=== PATIENT | female | born 1960 | race African-American/Black ===

== ENCOUNTER 2017-07-06 15:28 | Outpatient (CLI) | payer MEDICARE, MEDICAID | END 2017-07-06 15:29 | disposition home or self-care (01) | LOC: BICMAMMO 15:28 | PROVIDERS: ATTEND Family Medicine | DX: Z12.31 Encounter for screening mammogram for malignant neoplasm of breast (principal); R92.8 Other abnormal and inconclusive findings on diagnostic imaging of breast | CPT/HCPCS: 77063; 77067 ==

== ENCOUNTER 2018-04-14 21:29 | Inpatient (IN) | payer MEDICARE, MEDICAID ==
--- NOTE | 2018-04-14 23:38 | PDOC.FPRHP ---
- History of Present Illness Chief Complaint: Fever History of Present Illness: 57 yo F with ESRD, CHF, HTN, COPD, and cirrhosis presents as a transfer from [place] ED for fever. Patient has had fever of 101 yesterday with a nonproductive cough for past 2 days. She also has congestion and rhinorrhea. Patient receives MWF dialysis and sees Dr. Maurice, last dialyzed yesterday (Monday ). Denies dysuria or hematuria, diarrhea or constipation. She has chronic nausea and back pain. Fever was 102 at [place] ED. Patient was also hypoxic on RA, with pulse 94. Flu was negative, CXR showed RLL pneumonia and stable pulmonary vascular congestion. WBC was WNL. Lactic acid 0.7. Blood cultures were drawn. BMP was in 2,000, which is less than previously. In [place] ED, she received levaquin, vanc , zosyn, and 1 g tylenol. - Allergies/Adverse Reactions Allergies Allergy/AdvReac Type Severity Reaction Status Date / Time No Known Allergies Allergy Verified 04/14/18 23:40 - Home Medications Medication Instructions Recorded Confirmed Type cloNIDine HCl 0.1 mg PO TID 05/12/13 04/14/18 History hydrALAZINE [Apresoline] 50 mg PO TID #0 tab 05/16/13 04/14/18 Rx Benazepril HCl 20 mg PO BID 02/17/15 04/14/18 History Carvedilol [Coreg] 25 mg PO BID 02/17/15 04/14/18 History Megestrol Acetate 40 mg PO DAILY 05/27/15 04/15/18 History Pantoprazole [Protonix] 40 mg PO BID 06/07/15 04/14/18 History Sevelamer Carbonate [Renvela] 3,200 mg PO TID- 06/07/15 04/14/18 History Albuterol Sulfate [Proair HFA] 2 puff INH Q8HR 11/27/15 04/15/18 History Nitroglycerin [Nitrostat] 0.4 mg SL Q5MIN PRN #0 tab 11/28/15 04/15/18 Rx Pantoprazole [Protonix] 40 mg PO BID 04/14/18 04/14/18 History Sevelamer Carbonate [Renvela] 3,200 mg PO TID- 04/14/18 04/14/18 History Amlodipine [Norvasc] 5 mg PO DAILY 04/15/18 04/15/18 History Benazepril HCl 20 mg PO BID 04/15/18 04/15/18 History Dicyclomine [Bentyl] 10 mg PO TID 04/15/18 04/15/18 History Folic Acid/Vit B Comp W-C 1 tab PO DAILY 04/15/18 04/15/18 History [Nephro-Sydnie Tablet] Ondansetron [Zofran ODT] 4 mg PO Q6HR PRN 04/15/18 04/15/18 History Sildenafil Citrate [Sildenafil] 10 mg PO TID 04/15/18 04/15/18 History Varenicline Tartrate [Chantix] 0.5 mg PO DAILY 04/15/18 04/15/18 History traMADol HCl [Tramadol HCl] 50 mg PO BID 04/15/18 04/15/18 History - History PMHx: ESRD (MWF dialysis), HTN, stroke, cirrhosis, CHF, COPD, GERD, insomnia, chronic back pain PSHx: appendectomy, ectopic , L arm dialysis shunt FHx: non contributory Social: 1/2 PPD since age 12, working to quit currently (on chantix). Denies alcohol or drug use. - Review of Systems General: reports: fever/chills Eyes: denies: eye pain, vision changes ENT: reports: nasal congestion, rhinorrhea Respiratory: reports: cough, congestion. denies: shortness of breath Cardiovascular: denies: chest pain, palpitation, edema Gastrointestinal: reports: nausea, vomiting. denies: diarrhea, constipation, abdominal pain, GI bleeding Genitourinary: denies: incontinence, dysuria, other (denies hematuria) Skin: denies: rashes, lesions Musculoskeletal: reports: pain (chronic back pain). denies: tenderness, swelling, arthritis/arthralgias Neurological: denies: numbness, weakness Psychological: reports: other (reports she "gets angry easily" since childhood) . denies: anxiety, depression - Vital signs BP: [151/86] HR: [87] RR: [16] Tmax: [102] Pox: [95]% on [3L BNC] Wt: [49 kg] - Physical Exam Constitutional: NAD, awake, alert and oriented HEENT: normocephalic and atraumatic, PERRLA, EOMI, conjunctiva clear, grossly normal hearing, MMM, oropharynx clear -HEENT: Beefy tongue, lips cracked and bleeding Neck: supple, no LAD Heart: RRR, pulses present, no edema -Heart: 2/6 systolic murmur -Lungs: + expiratory wheezing on left upper and lower lobes. +crackles on Right upper and lower lobes. +expiratory Rhonchi on RLL. Abdomen: soft, non-tender, bowel sounds present Musculoskeletal: normal structure Skin: no rash/lesions, good turgor, capillary refill <2 seconds Heme/Lymphatic: no unusual bruising or bleeding, no petechia Psychiatric: intact recent and remote memory, other (Patient states she wants to leave, does not like [facility]; seemed somewhat angry at being hospitalized) FMR H&P: A/P - Problem List (1) Sepsis due to pneumonia Current Visit: Yes Status: Acute Code(s): J18.9 - PNEUMONIA, UNSPECIFIED ORGANISM; A41.9 - SEPSIS, UNSPECIFIED ORGANISM (2) COPD (chronic obstructive pulmonary disease) Current Visit: Yes Status: Acute (3) CHF (congestive heart failure) Current Visit: Yes Status: Acute Code(s): I50.9 - HEART FAILURE, UNSPECIFIED (4) Cirrhosis Current Visit: Yes Status: Acute Code(s): K74.60 - UNSPECIFIED CIRRHOSIS OF LIVER (5) Tobacco abuse Current Visit: Yes Status: Acute Code(s): Z72.0 - TOBACCO USE (6) Back pain, chronic Current Visit: No Status: Chronic Code(s): M54.9 - DORSALGIA, UNSPECIFIED; G89.29 - OTHER CHRONIC PAIN (7) ESRD (end stage renal disease) on dialysis Current Visit: No Status: Chronic Code(s): N18.6 - END STAGE RENAL DISEASE; Z99.2 - DEPENDENCE ON RENAL DIALYSIS (8) GERD (gastroesophageal reflux disease) Current Visit: No Status: Chronic Code(s): K21.9 - GASTRO-ESOPHAGEAL REFLUX DISEASE WITHOUT ESOPHAGITIS (9) HTN (hypertension) Current Visit: No Status: Chronic Code(s): I10 - ESSENTIAL (PRIMARY) HYPERTENSION Qualifiers: Qualified Code(s): I10 - Essential (primary) hypertension - Plan 57 yo F with ESRD, CHF, HTN, COPD, and cirrhosis presents as a transfer from [place] ED for RLL Pneumonia and suspected COPD exacerbation #Sepsis 2/2 RLL Pneumonia -Hypoxic, P 94, Fever 102, with CXR showing RLL Pneumonia; Crackles, rhonchi, wheezing on exam -No elevated WBC, but +Left shift -Requiring 3L BNC; did not require O2 at home -Flu negative -LA 0.7 -Received Vanc, Zosyn, and Levaquin in [place] -Blood cx drawn in [place], pending -UA pending -Transition abx to Azithromycin and Ceftriaxone q24, as this is most likely CAP -With pulmonary congestion seen on CXR and ESRD patient, will not add fluids at this time -albuterol q8h PRN #Suspected COPD exacerbation -albuterol q4h VAHE, q2h PRN -Wheezing on exam -Prednisone PO #ESRD -Elevated BNP almost 3000, less than on previous admissions -On MWF dialysis -Able to make urine -Consider consulting Dr. Maurice in the AM -Continue B complex, renvela #HTN -Hydralazine, carvedilol, benazepril, amlodipine, clonidine #Cirrhosis -history of hepatitis C #Tobacco abuse -Chantix #GERD -Pantoprazole #Chronic back pain -continue Tramadol #Hx of stroke -restart plavix 75 mg #Constipation -continue lactulose (clinic note states this is for constipation, not cirrhosis) DVT PPx: heparin Diet: Low sodium Dispo: >2 midnights FMR H&P: Upper Level - Pertinent history 57F, unreliable historian, presents as transfer for pneumonia. She had been at [facility] where she complained of fever with URI like symptom for 3 days. She was found to have possible RLL pneumonia vs atelectasis. She was transfer to [facility] for treatment of this pneumonia. She endorse fever, cough, congestion, sob. She denies chest pain In ER, she received vanc, zosyn and levaquin. She states she feels well now and is ready to go home. Risk factor includes current tobacco user, possible COPD and is ESRD. - Pertinent findings Gen: Alert, oriented HEENT: Dry mucosal membrane, trachea midline, poor dentition CV: RRR with possible 1/6 systolic murmur. No g/r. Resp: Air movement throughout. Mild crackles in lung bases, more on right. Mild wheezing GI: Normoactive, not tender Ext: Not edematous Derm: No obvious lesions Neuro: No focal weakness Psych: Grossly oriented - Plan Date/Time: 04/14/18 [id number] I, [Trung Mojica], have evaluated this patient and agree with findings/plan as outlined by internal communications intern resident. Pertinent changes/additions are listed here. 1. Community acquired pneumonia meeting sepsis criteria - Tachypnea at 24 BPM and 102F at [facility] but had corrected by time of arrival here - Ceftriaxone and azithromycin - Continue O2 support, goal to wean to 88-92% - Transition to PO as tolerated - Blood culture pending. At this time, not getting urine antigen as it appear to be uncomplicated CAP 2. Possible COPD - No hx of this in PCP record, but has smoking history, wheezing on exam so patient may have COPD - Consider exacerbation. If patient not improved on abx alone, consider starting steroid and treating as COPD exacerbation 3. ESRD - Consult Nephro if patient still here on Monday. Is MWF dialysis 4. HTN - Stable at this time, continue home med 5. GERD - Continue H jf 6. Low BMI - BMI 19. Will place on Nepro supplement 7. Elevated BNP - Likely from ESRD. Previous BNP were elevated. Dialysis as needed 8. Tobacco abuse - Advise cessation. Continue chantix.
[2018-04-15 00:12] VITALS: BMI 19.7
[2018-04-15] MEDS ORDERED: Nitroglycerin 0.4 MG TAB (25 Tab Bottle) SL PRN (00:43)
[2018-04-15] MEDS ORDERED: Ondansetron ODT 4 MG TAB PO PRN (00:43)
[2018-04-15] MEDS ORDERED: PROVENTIL INHALER 6.7 G (200 INHALATIONS) INH PRN ×2 (00:52→01:32)
[2018-04-15] MEDS ORDERED: predniSONE 20 MG TAB PO SCH (01:45)
[2018-04-15 02:13] LABS: #Eosinphils 0.1 thou/uL (0.0-0.7); #Lymphocytes 0.4 thou/uL (1.20-3.40); %Basophils 0.5 % (0.0-1.0); %Eosinophils 1.1 % (0.0-10.0); %Lymphocytes 4.4 % (21.0-51.0); %Monocytes 11.8 % (0.0-10.0); %Neutrophils 82.2 % (42.0-75.0); Hemoglobin 9.9 g/dL (12.0-16.0); Mean Corpuscular HGB CONC 32.5 g/dL (32.0-36.0); Mean Corpuscular Hemoglobin 29.3 pg (27.0-31.0); Mean Corpuscular Volume 90.2 fL (78.0-98.0); Mean Platelet Volume 8.8 fL (7.4-10.4); Platelet Count 191 thou/uL (130-400); RBC Distribution Width 14.2 % (11.5-14.5); Red Blood Cell (RBC) Count 3.36 mill/uL (4.20-5.40); White Blood Cell (WBC) Count 8.5 thou/uL (4.8-10.8)
[2018-04-15] MEDS: PROVENTIL INHALER 6.7 G (200 INHALATIONS) INH SCH ×2 (02:24→06:03)
[2018-04-15 03:13] LABS: Anion Gap 21 mmol/L (10-20); BUN (Urea Nitrogen) 54 mg/dL (9.8-20.1); Calc. Creatinine Clearance 6 mL/min (70-130); Calcium 9.5 mg/dL (7.8-10.44); Carbon Dioxide 26 mmol/L (22-29); Chloride 93 mmol/L (98-107); Estimated GFR-MDRD 7; Glucose 67 mg/dL (70-105); Potassium 4.1 mmol/L (3.5-5.1); Sodium 136 mmol/L (136-145)
[2018-04-15] MEDS ORDERED: PROVENTIL INHALER 6.7 G (200 INHALATIONS) INH SCH (06:00)
[2018-04-15] MEDS ORDERED: Albuterol Sulfate 1.25 MG/3 ML NEB ONE (06:29)
[2018-04-15] MEDS ORDERED: Albuterol Sulfate 1.25 MG/3 ML NEB NEB SCH (06:30)
[2018-04-15] MEDS ORDERED: Albuterol Sulfate 1.25 MG/3 ML NEB NEB PRN (07:00)
--- NOTE | 2018-04-15 07:10 | PDOC.FM ---
- Subjective Subjective: Pt states she is unchanged from the time she arrived. She states her breathing is about the same. She reports some mild SOB, chest pain with deep breaths, and a non productive cough. - Objective MAR Reviewed: Yes Vital Signs & Weight: Vital Signs (12 hours) Temp Pulse Resp BP Pulse Ox 04/15/18 06:03 98 18 90 L 04/15/18 04:13 99.8 F H 93 20 165/71 H 92 L 04/15/18 02:26 94 L 04/15/18 02:24 91 18 94 L 04/14/18 23:46 92 L 04/14/18 23:27 99.1 F 87 20 161/78 H 92 L Weight Weight 48.988 kg Result Diagrams: 04/15/18 01:40 04/15/18 01:40 Phys Exam - Physical Examination Constitutional: NAD HEENT: moist MMs Neck: no JVD, supple Coarse crackles heard diffusely, decreased air movement on left Cardiovascular: RRR, no significant murmur Gastrointestinal: soft, non-tender, no distention, positive bowel sounds Musculoskeletal: no edema, pulses present Neurological: moves all 4 limbs Psychiatric: normal affect, A&O x 3 Skin: cap refill <2 seconds Dx/Plan (1) Acute respiratory failure with hypoxia Code(s): J96.01 - ACUTE RESPIRATORY FAILURE WITH HYPOXIA Status: Acute (2) CHF (congestive heart failure) Code(s): I50.9 - HEART FAILURE, UNSPECIFIED Status: Acute (3) COPD (chronic obstructive pulmonary disease) Status: Acute (4) Cirrhosis Code(s): K74.60 - UNSPECIFIED CIRRHOSIS OF LIVER Status: Acute (5) Sepsis due to pneumonia Code(s): J18.9 - PNEUMONIA, UNSPECIFIED ORGANISM; A41.9 - SEPSIS, UNSPECIFIED ORGANISM Status: Acute (6) Tobacco abuse Code(s): Z72.0 - TOBACCO USE Status: Acute (7) Back pain, chronic Code(s): M54.9 - DORSALGIA, UNSPECIFIED; G89.29 - OTHER CHRONIC PAIN Status: Chronic (8) ESRD (end stage renal disease) on dialysis Code(s): N18.6 - END STAGE RENAL DISEASE; Z99.2 - DEPENDENCE ON RENAL DIALYSIS Status: Chronic (9) GERD (gastroesophageal reflux disease) Code(s): K21.9 - GASTRO-ESOPHAGEAL REFLUX DISEASE WITHOUT ESOPHAGITIS Status: Chronic (10) HTN (hypertension) Code(s): I10 - ESSENTIAL (PRIMARY) HYPERTENSION Status: Chronic Qualifiers: Qualified Code(s): I10 - Essential (primary) hypertension - Plan Plan: This is a 57 yo female with a pmh of CHF, COPD, ESRD on HD, cirrhosis Sepsis 2/2 RLL CAP -CXR shows RLL pneumonia -LA 0.7, procalcitonin 3.48 -Flu negative -Currently on azithromycin and rocephin -We are monitoring vitals and will give fluids if need be, however we do not want to overload her as she is ESRD -Duonebs q4hr Acute hypoxic respiratory failure likely 2/2 PNA and COPD -Duonebs q4hr with PRN -PO prednisone ESRD -MWF dialysis -Consult Dr. Maurice this morning -Continue B complex and renvela HTN -Continue home hydralazine, caredilol, benazepril, amlodipine, clonidine Cirrhosis -Hx of hep c Tobacco abuse -Continue chantix GERD -Pantoprazole Chronic back pain -Continue tramadol Hx of stroke -Continue plavix Constipation -Continue lactulose
[2018-04-15] MEDS: traMADol HCl 50 MG TAB PO SCH ×2 (07:12→19:46)
[2018-04-15] MEDS: Sevelamer Carbonate 800 MG TAB PO SCH ×3 (08:52→17:02)
[2018-04-15] MEDS: Amlodipine 5 MG TAB PO SCH (08:53)
[2018-04-15] MEDS: hydrALAZINE 25 MG TAB PO SCH ×3 (08:53→19:44)
[2018-04-15] MEDS: Varenicline Tartrate 0.5 MG TAB PO SCH (08:54)
[2018-04-15] MEDS: Megestrol Acetate 40 MG TAB PO SCH (08:54)
[2018-04-15] MEDS: Folic Acid/Vit B Comp W-C PO SCH (08:54)
[2018-04-15] MEDS: cloNIDine 0.1 MG TAB PO SCH ×3 (08:54→19:44)
[2018-04-15] MEDS: Clopidogrel Bisulfate 75 MG TAB PO SCH (08:54)
[2018-04-15] MEDS: Carvedilol 25 MG TAB PO SCH ×2 (08:54→19:43)
[2018-04-15] MEDS: Dicyclomine 10 MG CAP PO SCH ×3 (08:54→19:44)
[2018-04-15] MEDS: Heparin 5,000 UNITS/ML VIAL SC SCH ×3 (09:02→19:45)
[2018-04-15] MEDS: Acetaminophen 325 MG TAB PO SCH ×3 (12:56→19:48)
--- NOTE | 2018-04-15 13:58 | CON ---
DATE OF CONSULTATION: REASON FOR CONSULTATION: End-stage renal disease, on maintenance hemodialysis. HISTORY OF PRESENT ILLNESS: This is a very pleasant patient, who is on dialysis on Monday, Monday, Monday, presenting to the hospital with pneumonia-like symptoms, though the patient has had low-grade fevers and cough. The patient denies any headache, numbness, tingling, or weakness. Denies any nausea, vomiting, or chest pain. PAST MEDICAL HISTORY: Hypertension, cirrhosis, hepatitis C, GERD, appendectomy, ectopic , left AV fistula, and tunneled dialysis catheter. MEDICATIONS: Home medications list reviewed. Hospital medications list reviewed. SOCIAL HISTORY: No alcohol or drug use. REVIEW OF SYSTEMS: A 15-point review of systems was performed and was negative except for positives noted above. NECK: No swelling or lumps. NOSE: No epistaxis or discharge. EYES: No diplopia or pain. MUSCULOSKELETAL: No joint pain. NEUROPSYCHIATIC SYSTEMS: No suicidal ideation. No ideation. SKIN: Denies any rash or ulcer. CONSTITUTIONAL: No fever or chills. PHYSICAL EXAMINATION: CONSTITUTIONAL: The patient is awake, alert. VITAL SIGNS: Afebrile, pulse 85, breathing is 16, and blood pressure 161/72. GENERAL APPEARANCE AND MENTAL STATUS: Fair. HEAD/NECK: Normocephalic. Atraumatic. EYES: EOMI. No deformity. EARS: Clear. No ulcers. NOSE: Intact. No lesions. MOUTH: Clear. No discharge. THROAT: Clear. No exudate. LUNGS: Clear. No crackles. CARDIAC: S1, S2. No rub. ABDOMEN: Benign. Bowel sounds positive. GENITALIA/RECTUM: Pantoja absent. BACK/EXTREMITIES: Edema 0+. NEUROLOGICAL: Alert and motor intact. LABORATORY DATA: Labs show hemoglobin 9.9. Potassium 4.0. ASSESSMENT AND PLAN: 1. Stage 6 chronic kidney disease. Plan dialysis tomorrow. 2. Hypertension, stable. 3. Anemia, stable. 4. Medications based on glomerular filtration rate are appropriate. We will plan dialysis for tomorrow. Job ID: [id number]
[2018-04-15] MEDS: cefTRIAXone\\ROCEPHIN 1 GM in Sodium Chloride 0.9% 100 ML IVPB SCH (19:43)
[2018-04-15] MEDS: Azithromycin 500 MG in Sodium Chloride 0.9% 250 ML 250 ML IVPB SCH (21:43)
[2018-04-15] MEDS: diphenhydrAMINE 25 MG CAP PO PRN (21:43)
--- NOTE | 2018-04-16 05:29 | PDOC.FM ---
Addendum entered and electronically signed by Gini Simpson MD 04/16/18 10:10 : Of note, patient was later noted to be satting 99-100% on 2L via nasal canula rather than on room air. Was satting 98% when titrated down to 1.5L. Original Note: - Subjective Subjective: NAEO. Patient reports that her breathing has improved since admission. Denies any fever/chills, vomiting, or productive cough. Does endorse some occasional nausea. - Objective MAR Reviewed: Yes Vital Signs & Weight: Vital Signs (12 hours) Temp Pulse Resp BP BP Pulse Ox 04/16/18 04:00 98.3 F 76 18 111/69 04/16/18 02:30 79 16 95 04/16/18 00:00 98.0 F 78 18 94/57 L 97 04/15/18 22:44 75 18 92 L 04/15/18 20:00 97.9 F 77 18 129/69 93 L 04/15/18 19:44 77 129/69 04/15/18 19:42 129/69 04/15/18 19:12 79 16 100 04/15/18 17:39 98.2 F 81 16 139/76 96 Weight Weight 48.988 kg Result Diagrams: 04/15/18 01:40 04/17/18 07:49 Phys Exam - Physical Examination Constitutional: NAD HEENT: moist MMs Neck: supple, full ROM Respiratory: no wheezing, no rales, no rhonchi decreased breath sounds throughout Cardiovascular: RRR, no significant murmur Gastrointestinal: soft, positive bowel sounds Musculoskeletal: no edema, pulses present Neurological: non-focal, moves all 4 limbs Psychiatric: normal affect, A&O x 3 Skin: no rash, normal turgor Dx/Plan (1) Acute respiratory failure with hypoxia Code(s): J96.01 - ACUTE RESPIRATORY FAILURE WITH HYPOXIA Status: Acute (2) COPD (chronic obstructive pulmonary disease) Status: Acute (3) Cirrhosis Code(s): K74.60 - UNSPECIFIED CIRRHOSIS OF LIVER Status: Acute (4) Sepsis due to pneumonia Code(s): J18.9 - PNEUMONIA, UNSPECIFIED ORGANISM; A41.9 - SEPSIS, UNSPECIFIED ORGANISM Status: Acute (5) Tobacco abuse Code(s): Z72.0 - TOBACCO USE Status: Acute (6) Back pain, chronic Code(s): M54.9 - DORSALGIA, UNSPECIFIED; G89.29 - OTHER CHRONIC PAIN Status: Chronic (7) ESRD (end stage renal disease) on dialysis Code(s): N18.6 - END STAGE RENAL DISEASE; Z99.2 - DEPENDENCE ON RENAL DIALYSIS Status: Chronic (8) GERD (gastroesophageal reflux disease) Code(s): K21.9 - GASTRO-ESOPHAGEAL REFLUX DISEASE WITHOUT ESOPHAGITIS Status: Chronic (9) HTN (hypertension) Code(s): I10 - ESSENTIAL (PRIMARY) HYPERTENSION Status: Chronic Qualifiers: Qualified Code(s): I10 - Essential (primary) hypertension - Plan Plan: Sepsis 2/2 RLL CAP - Resolved as vitals are now within normal limits. - CXR signifcant for RLL pneumonia & patient was febrile up to 102F and hypoxic on RA on initial presentation. - LA 0.7 & procalcitonin 3.48 on initial presentation. Repeat procal pending for this AM. - Flu swab was negative on admission. - Will consider switching abx to PO fluoroquinoline in anticipation of patient completing antibiotic course as an outpatient. - Will continue BERONICA Duonebs but increase to q6hr as well as PRN albuterol. Will have supplemental O2 ordered PRN. Acute hypoxic respiratory failure likely 2/2 PNA inducing an acute on chronic COPD exacerbation - Resolved as patient was satting 99-100% on RA on exam this AM. Will d/c supplemental O2 & continue BERONICA Duonebs q6hr with PRN albuterol. - Will continue PO prednisone & PNA treatment as outlined above. ESRD - Aware, Dr. Maurice, patient's nephrololgist on board. Plan for regularly scheduled HD today. - Will continue B complex and renvela. hyperkalemia: - K of 5.6 this AM. - Patient to be dialyzed today in line wit regular F HD schedule. Will consider obtaining an ECG to ensure HD does not need to be emergent. HTN - Aware, BP actually low normal since admission. - Will continue home hydralazine, caredilol, benazepril, amlodipine, & clonidine as tolerated by patient. Cirrhosis -Aware, 2/2 Hx of hep c. Tobacco abuse - Aware, will continue chantix. GERD - Will continue Pantoprazole. Chronic back pain - Aware, will continue tramadol. Hx of stroke - Aware, will continue plavix. Constipation - Aware, will continue lactulose. Addendum - Attending - Attending Attestation Date/Time: 04/16/18 [id number] I personally evaluated the patient and discussed the management with Dr. Simpson and Dr. Lai I agree with the History, Examination, Assessment and Plan documented above with any addition or exceptions noted below. 57 yo female with hx of ESRD and multiple other medical conditions admitted for sepsis. HD#2 Patient still requiring supplemental O2 but reports she feels better. Cough and congestion still present. VS, labs, and imaging reviewed. Good air movement on exam. Titrated O2 down with good tolerance. Crackle vs rhonchi at bases. 1. Sepsis: resolved. cultures negative. 2. CAP vs HAP: Procal pending. If down trending will continue to de-escalate and switch to PO meds. WBC WNL. 3. Hypoxic acute respiratory distress: Continue to wean O2. 4. COPD ex: Continue oral steroids and beronica breathing treatments. IS at bedside. 5. ESRD: HD MWF Dispo: Continue inpatient until O2 requirements improved. Switch antibiotics based on procal. Jose Juan
[2018-04-16] MEDS: Acetaminophen 325 MG TAB PO SCH ×2 (06:05→17:36)
--- NOTE | 2018-04-16 07:11 | HP ---
ADDENDUM: Please see the history and physical from Dr. Reddy, for which I agree. The patient was seen, evaluated, examined, and discussed with the residents. HISTORY OF PRESENT ILLNESS: This is a pleasant 57-year-old Afro-[place] female with fever and cough. She has end-stage renal disease, does dialysis every Monday, Monday, and Monday and sees Dr. Maurice, but started developing fever and cough over the last couple of days and was found to have a pneumonia and is being admitted for that. Past medical history, past surgical history, mediations, social history, and review of systems, all per the history and physical from the residents, for which I agree. PHYSICAL EXAMINATION: GENERAL: Intermittently coughing, sitting up, leaning forward just a little bit to help her breathing. Not using a lot of accessory muscles and not horribly tachypneic. She is able to answer questions in full sentences. HEENT: Moist mucosa. Conjunctivae are slightly pale. Nothing extreme. CHEST: Decreased breath sounds throughout. Some crackles in the mid lung field, sounds like really bilaterally. ASSESSMENT: 1. Chronic obstructive pulmonary disease exacerbation and likely pneumonia. 2. End-stage renal disease. 3. Cirrhosis, unclear etiology or how that diagnosis was made. PLAN: Plan is to continue albuterol, although may switch that to DuoNeb. Continue home medicines. Otherwise, she is on Rocephin and Zithromax and I think that is fine for now. We will follow her clinically and anticipate improvement on current medications. She is also on prednisone to help. Job ID: [id number]
[2018-04-16 07:26] LABS: Anion Gap 23 mmol/L (10-20); BUN (Urea Nitrogen) 79 mg/dL (9.8-20.1); Calc. Creatinine Clearance 5 mL/min (70-130); Calcium 8.2 mg/dL (7.8-10.44); Carbon Dioxide 25 mmol/L (22-29); Chloride 92 mmol/L (98-107); Estimated GFR-MDRD 5; Glucose 92 mg/dL (70-105); Potassium 5.6 mmol/L (3.5-5.1); Sodium 134 mmol/L (136-145)
[2018-04-16] MEDS ORDERED: Chloraseptic Spray 180 ml Bottle PO PRN (09:47)
[2018-04-16] MEDS ORDERED: Lidocaine 2% Jelly 5 ML TUBE TOP PRN (09:59)
[2018-04-16] MEDS: Megestrol Acetate 40 MG TAB PO SCH (09:59)
[2018-04-16] MEDS: predniSONE 20 MG TAB PO SCH (10:00)
[2018-04-16] MEDS: Folic Acid/Vit B Comp W-C PO SCH (10:00)
[2018-04-16] MEDS: traMADol HCl 50 MG TAB PO SCH ×2 (10:02→21:45)
[2018-04-16] MEDS: Varenicline Tartrate 0.5 MG TAB PO SCH (10:03)
[2018-04-16] MEDS: Sevelamer Carbonate 800 MG TAB PO SCH ×3 (10:03→17:36)
[2018-04-16] MEDS: Dicyclomine 10 MG CAP PO SCH ×3 (10:03→21:46)
[2018-04-16] MEDS: Heparin 5,000 UNITS/ML VIAL SC SCH ×3 (10:05→21:46)
[2018-04-16] MEDS: Clopidogrel Bisulfate 75 MG TAB PO SCH (10:05)
[2018-04-16] MEDS: hydrALAZINE 25 MG TAB PO SCH ×3 (10:05→21:47)
[2018-04-16] MEDS: cloNIDine 0.1 MG TAB PO SCH ×3 (10:05→21:46)
[2018-04-16] MEDS: Carvedilol 25 MG TAB PO SCH ×2 (10:06→21:47)
[2018-04-16] MEDS: Amlodipine 5 MG TAB PO SCH (10:06)
[2018-04-16] MEDS: diphenhydrAMINE 25 MG CAP PO PRN (10:12)
--- NOTE | 2018-04-16 13:47 | PQF ---
DATE: 04-16-18 ATTN : DR. FAB POSEY Please exercise your independent, professional judgment in responding to the clarification form. Clinical indicators are provided on the bottom of this form for your review Please check appropriate box(s): HEART FAILURE: A. TYPE: [ ] Systolic / HFrEF [ ] Diastolic / HFpEF [ ] Combined Systolic / Diastolic B. ACUITY [ ] Acute [ ] Acute on Chronic [ ] Chronic [ x] Other diagnosis ___COPD- acute on chronic COPD exacerbation [ ] Unable to determine In addition, please specify: Present on Admission (POA): [ ] Yes [ ] No [ ] Unable to determine For continuity of documentation, please document condition throughout progress notes and discharge summary. Thank You. CLINICAL INDICATORS - SIGNS / SYMPTOMS / LABS ER: COUGH, CONGESTION, HYPOXIC AT 88% ON RA, HX CHF, SMOKER ER DX: RLL PNEUMONIA, ESRD ON HD, HYPOXIA H&P 04-14-18: ACUTE CHF, ESRD, ELEVATED BNP ALMOST 3000, LESS THAN ON PREVIOUS ADMISSIONS PN DR. SARABIA 04-15-18: ACUTE CHF RISKS: ER: COUGH, CONGESTION, HYPOXIC AT 88% ON RA, HX CHF, SMOKER, COPD, HTN TREATMENTS: ER: HOME CARVEDILOL, RT OXYGEN 04-15-18: O2 NC (This form is maintained as a part of the permanent medical record) 2014 [employer]. All Rights Reserved [email or web address] Office: [phone] [email or web address]
--- NOTE | 2018-04-16 14:34 | PRG ---
DATE OF SERVICE: SUBJECTIVE: A 57-year-old female being seen for end-stage renal disease. The patient denies any nausea, vomiting, or chest pain. OBJECTIVE: CONSTITUTIONAL: The patient is awake and alert. VITAL SIGNS: . GENERAL APPEARANCE AND MENTAL STATUS: Fair. HEAD/NECK: Normocephalic. Atraumatic. EYES: EOMI. No deformity. EARS: Clear. No ulcers. NOSE: Intact. No lesions. MOUTH: Clear. No discharge. THROAT: Clear. No exudate. LUNGS: Clear. No crackles. CARDIAC: S1, S2. No rub. ABDOMEN: Benign. Bowel sounds positive. GENITALIA/RECTUM: Pantoja absent. BACK/EXTREMITIES: Edema 0+. NEUROLOGICAL: Alert and motor intact. LABORATORY DATA: Labs show potassium 5.6. ASSESSMENT AND PLAN: 1. Stage 6 chronic kidney disease, continue hemodialysis. 2. Hyperkalemia, plan dialysis. 3. Anemia, stable. 4. Medications based on GFR as appropriate. Job ID: [id number]
[2018-04-16] MEDS ORDERED: Benzonatate 100 MG CAP PO PRN (15:29)
--- NOTE | 2018-04-16 17:25 | EKG ---
Test Reason : Blood Pressure : / mmHG Vent. Rate : 083 BPM Atrial Rate : 083 BPM P-R Int : 166 ms QRS Dur : 068 ms QT Int : 382 ms P-R-T Axes : 054 076 052 degrees QTc Int : 448 ms Normal sinus rhythm Normal ECG When compared with ECG of 27-NOV-2015 18:41, Nonspecific T wave abnormality no longer evident in Lateral leads Confirmed by CARMEN AUSTIN ([id number]) on 04/16/2018 5:25:45 PM Referred By: MEHREEN AcevedoR Confirmed By:CARMEN AUSTIN
[2018-04-16] MEDS: guaiFENesin ER 600 MG TAB PO SCH (21:46)
[2018-04-16] MEDS: cefTRIAXone\\ROCEPHIN 1 GM in Sodium Chloride 0.9% 100 ML IVPB SCH (21:48)
[2018-04-16] MEDS: Azithromycin 500 MG in Sodium Chloride 0.9% 250 ML 250 ML IVPB SCH (21:49)
[2018-04-17] MEDS: Acetaminophen 325 MG TAB PO SCH (05:55)
[2018-04-17] MEDS ORDERED: Acetaminophen 325 MG TAB PO PRN (07:25)
--- NOTE | 2018-04-17 07:34 | PDOC.FM ---
- Subjective Subjective: NAEO. Patient did well on RA overnight. States she still has some wheezing and a non-productive cough but says her breathing is much improved. - Objective MAR Reviewed: Yes Vital Signs & Weight: Vital Signs (12 hours) Temp Pulse Resp BP BP Pulse Ox 04/17/18 06:36 80 16 04/17/18 04:00 98.7 F 72 16 130/80 99 04/17/18 00:23 77 14 93 L 04/16/18 21:47 75 134/66 04/16/18 21:46 134/68 04/16/18 20:00 98.7 F 75 16 134/68 94 L Weight Weight 48.988 kg I&O: 04/16/18 04/17/18 04/18/18 06:59 06:59 06:59 Intake Total 500 Balance 500 Result Diagrams: 04/15/18 01:40 04/17/18 07:49 Phys Exam - Physical Examination Constitutional: NAD HEENT: moist MMs Neck: supple, full ROM Respiratory: no rales, no rhonchi, wheezing present (minimal inspiratory wheezing heard throughout) Cardiovascular: RRR, no significant murmur Gastrointestinal: no distention Neurological: non-focal, moves all 4 limbs Psychiatric: normal affect, A&O x 3 Skin: no rash, normal turgor Dx/Plan (1) Acute respiratory failure with hypoxia Code(s): J96.01 - ACUTE RESPIRATORY FAILURE WITH HYPOXIA Status: Acute (2) COPD (chronic obstructive pulmonary disease) Status: Acute (3) Cirrhosis Code(s): K74.60 - UNSPECIFIED CIRRHOSIS OF LIVER Status: Acute (4) Sepsis due to pneumonia Code(s): J18.9 - PNEUMONIA, UNSPECIFIED ORGANISM; A41.9 - SEPSIS, UNSPECIFIED ORGANISM Status: Acute (5) Tobacco abuse Code(s): Z72.0 - TOBACCO USE Status: Acute (6) Back pain, chronic Code(s): M54.9 - DORSALGIA, UNSPECIFIED; G89.29 - OTHER CHRONIC PAIN Status: Chronic (7) ESRD (end stage renal disease) on dialysis Code(s): N18.6 - END STAGE RENAL DISEASE; Z99.2 - DEPENDENCE ON RENAL DIALYSIS Status: Chronic (8) GERD (gastroesophageal reflux disease) Code(s): K21.9 - GASTRO-ESOPHAGEAL REFLUX DISEASE WITHOUT ESOPHAGITIS Status: Chronic (9) HTN (hypertension) Code(s): I10 - ESSENTIAL (PRIMARY) HYPERTENSION Status: Chronic Qualifiers: Qualified Code(s): I10 - Essential (primary) hypertension - Plan Plan: Sepsis 2/2 RLL CAP - Resolved as vitals are now within normal limits. - CXR signifcant for RLL pneumonia & patient was febrile up to 102F and hypoxic on RA on initial presentation. - LA 0.7 & procalcitonin 3.48 on initial presentation. Latest procal down to 3.91 from 4.25 yesterday AM. - Will consider getting a repeat procal this AM and switching abx to PO fluoroquinolone today in anticipation of patient completing antibiotic course as an outpatient. - Will continue Duonebs but make them PRN q6hr in addition to PRN albuterol. Will continue supplemental O2 ordered PRN. Acute hypoxic respiratory failure likely 2/2 PNA inducing an acute on chronic COPD exacerbation - Resolved as patient has been satting 93-99% on RA since going to HD yesterday. Will change Duonebs to q6hr PRN & see how patient does today. - Will continue PO prednisone & PNA treatment as outlined above. ESRD on MWF HD - Aware, Dr. Maurice, patient's nephrololgist on board. Patient was dialyzed yesterday in conjunction with her normal HS schedule. - Will continue B complex and renvela. Hyperkalemia: - Repeat BMP pending for today. Will address PRN. - Patient to be dialyzed today in line with regular MWF HD schedule. Will consider obtaining an ECG to ensure HD does not need to be emergent. HTN - Aware, BP has been WNLs since admission. - Will continue home hydralazine, caredilol, benazepril, amlodipine, & clonidine. Cirrhosis -Aware, 2/2 Hx of hep c. Tobacco abuse - Aware, will continue chantix. GERD - Will continue Pantoprazole. Chronic back pain - Aware, will continue tramadol. Hx of stroke - Aware, will continue plavix. Constipation - Aware, will continue lactulose. Dispo: Possible d/c later today on PO antibiotics. Addendum - Attending - Attending Attestation Date/Time: 04/17/18 1320 I personally evaluated the patient and discussed the management with Dr. Simpson and Dr. Lai I agree with the History, Examination, Assessment and Plan documented above with any addition or exceptions noted below. 57 yo female with hx of ESRD and multiple other medical conditions admitted for sepsis. HD#3 Improved. Reports breathing much better. Now off supplemental O2. VS, labs, and imaging reviewed. 1. Sepsis: resolved. cultures negative. 2. CAP vs HAP: Procal down trending. Switch to oral 3rd gend cephalosporin and azithro. 3. Hypoxic acute respiratory distress: Resolved. 4. COPD ex: Improving. Continue oral steroids and beronica breathing treatments at home. 5. ESRD: HD MWF Dispo: Ok to d/c to home. Jose Juan
[2018-04-17 07:39] VITALS: TEMP 98.6
[2018-04-17] MEDS: Sevelamer Carbonate 800 MG TAB PO SCH ×2 (08:14→11:38)
[2018-04-17] MEDS: cloNIDine 0.1 MG TAB PO SCH (08:15)
[2018-04-17] MEDS: guaiFENesin ER 600 MG TAB PO SCH (08:15)
[2018-04-17] MEDS: hydrALAZINE 25 MG TAB PO SCH (08:15)
[2018-04-17] MEDS: Megestrol Acetate 40 MG TAB PO SCH (08:16)
[2018-04-17] MEDS: traMADol HCl 50 MG TAB PO SCH (08:16)
[2018-04-17] MEDS: Dicyclomine 10 MG CAP PO SCH (08:16)
[2018-04-17] MEDS: Carvedilol 25 MG TAB PO SCH (08:16)
[2018-04-17] MEDS: Folic Acid/Vit B Comp W-C PO SCH (08:17)
[2018-04-17] MEDS: Amlodipine 5 MG TAB PO SCH (08:17)
[2018-04-17] MEDS: predniSONE 20 MG TAB PO SCH (08:17)
[2018-04-17] MEDS: Varenicline Tartrate 0.5 MG TAB PO SCH (08:17)
[2018-04-17 08:19] VITALS: BP 150/77
[2018-04-17] MEDS: Clopidogrel Bisulfate 75 MG TAB PO SCH (08:23)
[2018-04-17] MEDS: Heparin 5,000 UNITS/ML VIAL SC SCH (08:23)
[2018-04-17 09:24] LABS: Anion Gap 19 mmol/L (10-20); BUN (Urea Nitrogen) 39 mg/dL (9.8-20.1); Calc. Creatinine Clearance 8 mL/min (70-130); Calcium 8.7 mg/dL (7.8-10.44); Carbon Dioxide 27 mmol/L (22-29); Chloride 98 mmol/L (98-107); Estimated GFR-MDRD 8; Glucose 88 mg/dL (70-105); Sodium 139 mmol/L (136-145)
--- NOTE | 2018-04-17 11:42 | PRG ---
DATE OF SERVICE: 04/17/2018 SUBJECTIVE: A 57-year-old female, being seen for end-stage renal disease. The patient denies any nausea, vomiting, or chest pain. OBJECTIVE: CONSTITUTIONAL: The patient is awake and alert. VITAL SIGNS: Afebrile, pulse 71, breathing is 16, and blood pressure 125/67. GENERAL APPEARANCE AND MENTAL STATUS: Fair. HEAD/NECK: Normocephalic. Atraumatic. EYES: EOMI. No deformity. EARS: Clear. No ulcers. NOSE: Intact. No lesions. MOUTH: Clear. No discharge. THROAT: Clear. No exudate. LUNGS: Clear. No crackles. CARDIAC: S1, S2. No rub. ABDOMEN: Benign. Bowel sounds positive. GENITALIA/RECTUM: Pantoja absent. BACK/EXTREMITIES: Edema 0+. NEUROLOGICAL: Alert and motor intact. ASSESSMENT AND PLAN: 1. Stage 6 chronic kidney disease. Continue hemodialysis on Monday, Monday, Monday. 2. Hypertension, stable. 3. Anemia, stable. 4. Medications based on GFR as appropriate. Job ID: [id number]
--- NOTE | 2018-04-19 09:58 | DIS ---
DATE OF ADMISSION: 04/14/2018 DATE OF DISCHARGE: 04/17/2018 RESIDENT: Gini Simpson MD ADMITTING ATTENDING: Keven Cantu MD DISCHARGE ATTENDING: Sravanthi Smyth MD CONSULTS: None. PROCEDURES: Chest x-ray significant for right basilar atelectasis and/or infiltrates as well as mild vascular congestion and interstitial prominence. PRIMARY DIAGNOSES: 1. Sepsis, secondary to community-acquired pneumonia. 2. [id number] chronic obstructive pulmonary disease exacerbation. 3. Acute hypoxic respiratory failure, secondary to right lower lobe pneumonia-induced chronic obstructive pulmonary disease exacerbation. SECONDARY DIAGNOSES: 1. End-stage renal disease, on hemodialysis. 2. Hypertension. 3. Cirrhosis, secondary to chronic hepatitis C. 4. Tobacco abuse. 5. Gastroesophageal reflux disease. 6. Chronic back pain. 7. History of cerebrovascular accident. 8. Chronic constipation. DISCHARGE MEDICATIONS: 1. Azithromycin 500 mg p.o. daily for 1 day. 2. Acetaminophen 650 mg p.o. every 6 hours p.r.n. for pain. 3. Albuterol sulfate or ProAir 2 puffs inhaled every 8 hours p.r.n. 4. Amlodipine 5 mg p.o. daily. 5. Benazepril 20 mg p.o. b.i.d. 6. Tessalon 100 mg p.o. every 4 hours p.r.n. for cough. 7. Coreg 25 mg p.o. b.i.d. 8. Cefdinir 300 mg p.o. every 12 hours for 4 days. 9. Clonidine 0.1 mg p.o. t.i.d. 10. Plavix 75 mg p.o. daily. 11. Bentyl 10 mg p.o. t.i.d. 12. Benadryl 25 mg p.o. every 8 hours p.r.n. 13. Nephro-hadley 1 tab p.o. daily. 14. Mucinex 600 mg p.o. every 12 hours. 15. Hydralazine 50 mg p.o. t.i.d. 16. DuoNeb 3 mL nebulized solution every 6 hours p.r.n. for shortness of breath and wheezing. 17. Megace 40 mg p.o. daily. 18. Nitrostat 0.4 mg sublingual every 5 minutes p.r.n. for chest pain. 19. Zofran 4 mg p.o. every 6 hours p.r.n. for nausea and vomiting. 20. Protonix 40 mg p.o. b.i.d. 21. Phenol or chloraseptic spray p.r.n. for sore throat. 22. Prednisone 40 mg p.o. q.a.m. with meals for 3 days. 23. Renvela 3200 mg p.o. t.i.d. with meals. 24. Sildenafil 10 mg p.o. t.i.d. 25. Chantix 0.5 mg p.o. daily. DISCONTINUED MEDICATIONS: None. HOSPITAL COURSE: The patient is a 57-year-old female with a past medical history significant for COPD, tobacco use, end-stage renal disease on hemodialysis, who presented as a transfer from the [facility] with a chief complaint of fever and cough for the past 2 days. The patient reported having a fever up to 101, the day prior to presentation and a nonproductive cough. At the [facility], the patient was noted to be febrile at 102 degrees Fahrenheit and hypoxic on room air with the pulse of 94. Her flu swab was negative; however, a chest x-ray was obtained, which was significant for a right lower lobe infiltrate consistent with community-acquired pneumonia as well as some stable pulmonary vascular congestion. Her white count was within normal limits and her lactic acid was also within normal limits at 0.7. However, due to her fever and hypoxia, the patient was determined to be septic and blood cultures were obtained. She was then given IV Levaquin, vancomycin, and Zosyn as well as 1 g of p.o. Tylenol before being transferred to the [facility] Emergency Department. The patient arrived to [facility] on 3 L nasal cannula and was admitted to the medical floor for treatment of her pneumonia. She was continued on IV azithromycin and Rocephin for treatment of her pneumonia and also started on p.o. steroids and scheduled DuoNebs for every 4 hours with inhaled albuterol also available every 2 hours p.r.n. Over the weekend, the patient was gradually weaned off supplemental oxygen and was eventually saturating between 97% to 100% on room air. Her DuoNeb treatments were also eventually transitioned to be p.r.n. and by the date of discharge, the patient required only one DuoNeb that day. Thus, after being weaned off supplemental oxygen, the patient was determined to be back at her baseline respiratory status and cleared to be discharged home to complete her antibiotic course p.o. on an outpatient basis. Regarding the patient's end-stage renal disease, the patient was dialyzed in line with her routine Monday, Monday and Monday hemodialysis schedule during the course of her hospitalization. Of note, the morning of 04/16/2018, the patient' s potassium was noted to be elevated at 5.8. However, after being dialyzed on that date, her potassium returned to be within normal limits the following morning. DISPOSITION: Stable. DISCHARGE INSTRUCTIONS: 1. Location: Home. 2. Diet: Heart-healthy, low-sodium diet, renal diet. 3. Activity: As tolerated. No restrictions. 4. Followup: The patient was instructed to follow up with her primary care provider, Dr. Kalani Ribera within 10 days of discharge. Job ID: [id number] MTDD
== END 2018-04-17 14:09 | disposition home health service (06) | DRG 871 ==
LOC: ERS 21:29 → T4-A 22:17
PROVIDERS: ADMIT Family Medicine; ATTEND Family Medicine
PROC: 5A1D70Z Performance of Urinary Filtration, Intermittent, Less than 6 Hours Per Day (ICD-10-PCS; principal; 2018-04-16)
DX: A41.9 Sepsis, unspecified organism (principal); J96.01 Acute respiratory failure with hypoxia; J18.9 Pneumonia, unspecified organism; N18.6 End stage renal disease; J44.1 Chronic obstructive pulmonary disease with (acute) exacerbation; I12.0 Hypertensive chronic kidney disease with stage 5 chronic kidney disease or end stage renal disease; K74.60 Unspecified cirrhosis of liver; Z99.2 Dependence on renal dialysis; K21.9 Gastro-esophageal reflux disease without esophagitis; Z86.19 Personal history of other infectious and parasitic diseases; D64.9 Anemia, unspecified; Z86.73 Personal history of transient ischemic attack (TIA), and cerebral infarction without residual deficits; G47.00 Insomnia, unspecified; M54.89 Other dorsalgia; Z66 Do not resuscitate; B18.2 Chronic viral hepatitis C; K59.09 Other constipation; Z72.0 Tobacco use
CPT/HCPCS: 36415; 80048; 84145; 85025; 90935; 93005; 93010; 94640; 99284; G0257; J0456; J0696; J1644; J7050; J7506; J7620; Q0162; S0179

== ENCOUNTER 2018-11-07 11:22 | Inpatient (IN) | payer MEDICARE, MEDICAID ==
[~2018-11-07 11:22] MED LIST: ISOVUE-370 76%-LOCM 1 ML ONE
[2018-11-07] MEDS ORDERED: niCARdipine 20MG In NaCl 20 MG/200 ML BAG ONE ×2 (11:54→15:02)
[2018-11-07] MEDS ORDERED: Mag-Al 1200 mg/1200 mg/30 ML UDCUP PO PRN (14:04)
[2018-11-07] MEDS ORDERED: Acetaminophen 325 MG TAB PO PRN (14:04)
[2018-11-07] MEDS ORDERED: Milk Of Magnesia 30 ML UDCUP PO PRN (14:04)
[2018-11-07] MEDS ORDERED: Labetalol HCl 100 MG/20 ML VIAL SLOW IVP PRN (14:04)
[2018-11-07] MEDS ORDERED: Docusate 100 MG CAP PO PRN (14:04)
[2018-11-07] MEDS ORDERED: Ondansetron PF 4 MG/2 ML Vial IVP PRN (14:04)
[2018-11-07] MEDS ORDERED: traMADol HCl 50 MG TAB PO PRN (14:17)
--- NOTE | 2018-11-07 14:50 | CT ---
CTA HEAD WITH CONTRAST: 11/07/18 Multiple axial tomograms obtained through the head following CT angio protocol with multiplanar recon struction and 3D postprocessing. INDICATIONS: Intraventricular hemorrhage. Correlation made to CT head performed earlier today showing interventricular hematoma. FINDINGS: The intracranial internal carotid arteries are patent and symmetric. Middle cerebral arteries are patent and symmetric. Anterior cerebral arteries are unremarkable. Basil ar artery is patent. Posterior cerebral arteries are patent and symmetric. No focal occlusion or sten osis identified. There is no evidence of AVM. The parenchymal hematoma in the left frontal lobe extending with interventricular extension is again seen. No significant interval change from exam earlier today. Mass effect with slight midline shift o f the septum pellucidum is again noted and is unchanged. IMPRESSION: Unremarkable CTA of head. POS: CARLOS
--- NOTE | 2018-11-07 15:30 | HP ---
HISTORY OF PRESENT ILLNESS: Ms. Mike is 57-year-old female who is on dialysis with past medical history of previous hemorrhagic stroke and hypertension. She reported to the Emergency Department this morning in [place] for altered mental status. Her daughter states that she was trying to get into her vehicle with the house goff and had some gait changes and speech and confusion. An intraventricular hemorrhage was found on CT in [place] and the patient was transferred to [place] in [place]. The patient was resting when I entered the hospital room. She opens her eyes to voice. She follows commands. She is not very cooperative, however, she is moving all 4 extremities well. She would not cooperate to give me a good exam of strength bilaterally. She is confused. She is oriented to place and repeatedly say some words. She knows she is in the hospital, but thinks she still in [place]. She knows that she lives in [place] as well. The patient's sister is in the room and states that she was seen in the ER a few days ago for headache and was sent home. Today, she complains of headache as well as back pain. She also complains of some dizziness, but no vomiting. GCS of 13. REVIEW OF SYSTEMS: A 10-point review of systems has been completed and is negative other than stated in the above HPI. ALLERGIES: NO KNOWN DRUG ALLERGIES. MEDICATIONS: 1. Renvela. 2. Clonidine. 3. Benazepril. 4. Carvedilol. 5. Hydralazine. 6. Amlodipine. 7. Zofran. 8. Megestrol. 9. Chantix. 10. Sildenafil. 11. Nephro-Sydnie. 12. Tramadol. PAST MEDICAL HISTORY: Hemorrhagic stroke, cirrhosis, cardiac history, congestive heart failure, pulmonary disease, chronic obstructive pulmonary disease, gastroesophageal reflux, is on dialysis, insomnia, chronic back pain, hypertension. PAST SURGICAL HISTORY: Left arm shunt for dialysis, tubal , appendectomy. SOCIAL HISTORY: The patient denies alcohol, drug use. She is a former tobacco user. Smokes cigarettes. PHYSICAL EXAMINATION: VITAL SIGNS: Blood pressure 145/80, heart rate 82, respirations 18, O2 sats 93% on room air, temperature 98.1. GENERAL: The patient is sleepy. She does not appear to be in any visible distress. She is hypertensive, afebrile, nontoxic appearing. HEENT: Head is normocephalic and atraumatic. Pupils are equal, round, and reactive to light. Extraocular movements are intact. Hearing is intact. Moist mucous membranes. RESPIRATIONS: Normal work of breathing on room air. Symmetric chest rise. EXTREMITIES: The patient is moving all 4 extremities with normal range of motion. Unable to obtain full strength exam due to the patient is unwilling to cooperate. Good strength of bilateral dorsiflexion, plantar flexion, normal production crew supervisor strength. No visible lateralizing defect. NEUROLOGIC: The patient is oriented to person. GCS of 13. She is confused and opens eyes to verbal. She does follow commands. She is moving all 4 extremities. There are no lateralizing deficits. Cranial nerves 2 through 12 are tested and intact. IMAGING STUDIES: CT brain shows acute intraventricular hemorrhage with obstructive hydrocephalus. ASSESSMENT AND PLAN: Ms. Mike is 57-year-old female, who has sustained hypertensive intraventricular hemorrhage. She currently has GCS of 13. We are going to admit her to the hospital, obtain CTA and we are going to monitor neuro checks every hour until at bedside. We are going to obtain a repeat CT of the brain in the morning. We will keep her systolic blood pressure under 140 and keep her comfortable. Also referral to the hospitalist for medical management. If there are any others questions, please contact the Neurosurgery team. Job ID: [id number]
[2018-11-07] MEDS: niCARdipine 25 MG in Sodium Chloride 0.9% 250 ML 240 ML IVPB PRN ×3 (16:52→21:38)
--- NOTE | 2018-11-07 17:30 | CON ---
DATE OF CONSULTATION: HISTORY OF PRESENT ILLNESS: Ela Mike is a 57-year-old female, presented to the ER with confusion, difficulty ambulating , more confused, who came to the ER where a CT head showed evidence of intracerebral hemorrhage. She is now in the ICU on a Cardene drip, the reason for consultation. She is unable to give any history. She is clearly confused, though says she is having some chest pain. When asked repeatedly whether she had difficulty breathing, she denies any symptoms of shortness of breath. PAST MEDICAL HISTORY: 1. End-stage renal disease, on dialysis 3 times a week. Reviewing the previous records, she has been noncompliant. 2. History of previous stroke. 3. History of cirrhosis. 4. Congestive heart failure. 5. COPD. 6. Reflux. 7. Chronic pain. 8. Arthritis. 9. Hypertension. 10. Disabled. PAST SURGICAL HISTORY: Tubal , appendix access. SOCIAL HISTORY: She used to smoke at one time. Quit smoking some time back. Not able to give any history. Alcohol apparently none. HOME MEDICATIONS: Very long list, it is unclear whether some of the medicines she is taking regularly, but she is on a whole bunch of blood pressure medications, including clonidine 0.1 three times a day, Chantix, sildenafil 10 three times a day, Protonix 40 b.i.d., nitroglycerin, nebulizer p.r.n., DuoNeb, Plavix 75, Coreg apparently 25 b.i.d., benazepril 20 b.i.d., Norvasc 5 a day. ALLERGIES: APPARENTLY UNKNOWN. PHYSICAL EXAMINATION: VITAL SIGNS: Blood pressure 130/70 on 10 mg of Cardene, pulse is 80, respirations 16, saturations are 94%. HEENT: Opens eyes, sticks tongue out, moves all extremities. CHEST: Decreased breath sound. No wheezing. CARDIAC: Normal S1, S2. No gallops. ABDOMEN: Soft. IMAGING STUDIES: CT head shows intercerebral hemorrhage with extension into the ventricle. There is some evidence of hydrocephalus. LABORATORY DATA: Lab shows findings with chronic renal failure. Creatinine is 8, BUN 62, white count 3000, H and H 12 and 39, platelet count normal. IMPRESSION: 1. Left frontoparietal hemorrhages extending to the ventricle. 2. Chronic obstructive pulmonary disease. 3. Chronic renal failure. 4. Encephalopathy. 5. Hypertension. 6. Former smoker. PLAN: Continue nicardipine. She is on Keppra initiated. When she is able to swallow, restart home medication. Consultation note, 70 minutes, 50% in direct patient care. Job ID: [id number]
[2018-11-07] MEDS ORDERED: Acetaminophen 1,000 MG in Premix Bag 1 BAG IVPB PRN (18:02)
[2018-11-07] MEDS ORDERED: levETIRAcetam 500 MG TAB PO SCH (21:00)
--- NOTE | 2018-11-07 21:16 | CON ---
DATE OF CONSULTATION: 11/07/2018 CONSULTING PHYSICIAN: Dr. Rodriguez. REASON FOR CONSULT: End-stage renal disease evaluation and care. REASON FOR ADMISSION: Hemorrhagic stroke, and hypertension. HISTORY OF PRESENT ILLNESS: A 57-year-old female with history of CVA, CHF, end-stage renal disease, came to the hospital after a stroke. The patient had gait changes and speech and confusion. This morning her family took her to the local ER, was found to have a hemorrhagic stroke and was transferred over here. She is being monitored in ICU. She is due for dialysis. She gets dialysis Monday, Monday, Monday. She did not get her dialysis today. Her GCS was 13. No nausea, vomiting, chest pain reported to me right now. PAST MEDICAL HISTORY: Positive for CVA, cirrhosis, CHF, COPD, GERD, end-stage renal disease, chronic back pain, hypertension. PAST SURGICAL HISTORY: Dialysis access placement, tubal , and appendectomy. HOME MEDICATIONS: Include; 1. Tramadol. 2. Renvela. 3. Protonix. 4. Nephro-Sydnie. 5. Benazepril. ALLERGIES: NO KNOWN DRUG ALLERGIES. SOCIAL HISTORY: No smoking, alcohol, or illicit drug abuse. FAMILY HISTORY: No history of kidney disease. REVIEW OF SYSTEMS: CONSTITUTIONAL: Negative for weight loss or gain, ability to conduct usual activities. SKIN: Negative for rash, itching. EYES: Negative for double vision, pain. ENT/MOUTH: Negative for nose bleeding, neck stiffness, pain, tenderness. CARDIOVASCULAR: Negative for palpitations, dyspnea on exertion, orthopnea. RESPIRATORY: Negative for shortness of breath, wheezing, cough, hemoptysis, fever or night sweats. GASTROINTESTINAL: Negative for poor appetite, abdominal pain, heartburn, nausea, vomiting, constipation, or diarrhea. GENITOURINARY: Negative for urgency, frequency, dysuria, nocturia. MUSCULOSKELETAL: Negative for pain, swelling. NEUROLOGIC/PSYCHIATRIC: Negative for anxiety, depression. ALLERGY/IMMUNOLOGIC: Negative for skin rash, bleeding tendency. Rest are negative review of systems. PHYSICAL EXAMINATION: GENERAL: This is a well-built female, in no apparent distress. VITAL SIGNS: Temperature 98.2, pulse 82, respiratory rate . HEENT: Atraumatic, normocephalic. Oral mucosa is moist. NECK: Supple. CV: S1, S2 heard. Rate and rhythm regular. RESPIRATORY: Clear to auscultation. GI: Abdomen is soft. MUSCULOSKELETAL: 1+ edema. DERMATOLOGIC: No skin rash. NEUROLOGIC: Alert and awake. PSYCHIATRIC: Mood and affect normal. LABORATORY DATA: Hemoglobin is 12.1, potassium 4.2, BUN is 62, and creatinine is 8.1. ASSESSMENT/PLAN: 1. End-stage renal disease. Continue on dialysis as tolerated. CT scan of the brain is showing obstructive hydrocephalus and not safe to have conventional dialysis per Neurosurgery. No acute indication for dialysis. Plan is to monitor and if she continues to continue to have issues recurrently and needs to continue dialysis, we might have to move her to a tertiary center. We will monitor overnight and we will repeat labs in the morning, and we will arrange for dialysis as tolerated. 2. Cerebrovascular accident. 3. Hypertension, stable, currently on Cardene drip. 4. Edema, controlled. 5. We will continue close monitor. Job ID: [id number]
[2018-11-08] MEDS: niCARdipine 25 MG in Sodium Chloride 0.9% 250 ML 240 ML IVPB PRN ×5 (00:39→20:20)
[2018-11-08] MEDS: manNITOL 20% 500 ML IVPB SCH ×2 (01:33→02:33)
--- NOTE | 2018-11-08 01:34 | CON ---
DATE OF CONSULTATION: 11/07/18 CONSULTING PHYSICIAN: Dr. Martinez with Neurosurgery. HISTORY OF PRESENT ILLNESS: This is a 57-year-old female with past medical history of hypertension, end-stage renal disease, on hemodialysis, prior hemorrhagic CVA , COPD, who presented to the [facility] because she was found by her neighbor to be confused, trying to get into her car using her house goff. She was unsure where her cellphone one was, even though it was in her bedroom where she normally kept it and had slight slurred speech. She had a brain CT performed in [facility] that showed a large intraventricular hematoma, largest at the frontal horn of the left lateral ventricle with a moderate amount throughout the body of the left lateral ventricle and small amounts in the trigone and occipital horn of left lateral ventricle. A moderate-sized hematoma expanding the 3rd ventricle and a small intraventricular hematoma in the right lateral ventricle centered at the foramen of Monro. This is resulting in obstructive hydrocephalus. Suspicion for acute hypertensive hemorrhage in the left basal ganglia. The patient had been complaining of a headache as well, but no other complaints. She was transferred to this hospital and was admitted by Neurosurgery. She had a CTA of her head done that showed no evidence of AVM. Parenchymal hematoma in the left frontal lobe extending with intraventricular extension. No significant interval change from the prior CT. Mass effect with slight midline shift of the septum pellucidum is noted. She at the time of my evaluation was alert and oriented x3. She was slightly confused. She did not want to answer questions with words, she would nod yes or no. Toward the end of the exam, I was finally able to get her to say her name and location. The patient reports that she still feels confused and seemed embarrassed by this. The patient typically receives dialysis Monday, Monday, Monday with Dr. Maurice; however, she had not received dialysis yet today. REVIEW OF SYSTEMS: A 10-point review of systems was completed and was negative except what was mentioned in HPI. This was confirmed by the patient nodding yes or no and not directly answering questions. PAST MEDICAL HISTORY: CAD, CHF, COPD, GERD; end-stage renal disease, on hemodialysis; hypertension, history of CVA. PAST SURGICAL HISTORY: Appendectomy, tubal , and left arm dialysis shunt placement. MEDICATIONS: 1. Carvedilol 25 mg one tab p.o. b.i.d. 2. Clonidine 0.1 mg one tab p.o. t.i.d. 3. Nitroglycerin 0.4 mg one tab sublingual every 5 minutes up to 3 doses p.r.n. chest pain. 4. Benazepril 20 mg one tab p.o. b.i.d. 5. Hydralazine 100 mg one half tab by mouth t.i.d. 6. Amlodipine 5 mg one tab p.o. at bedtime. 7. Dicyclomine 10 mg one tab p.o. t.i.d. p.r.n. 8. Renvela 800 mg 5 with each meal and 3 with each snack. 9. Tramadol 1 by mouth b.i.d. p.r.n. pain. 10. Zofran 4 mg sublingual b.i.d. p.r.n. nausea. 11. Megestrol acetate 2 tablespoons p.o. daily, 40 mg. 12. Sildenafil 20 mg one half tab p.o. t.i.d. ALLERGIES: NO KNOWN DRUG ALLERGIES. SOCIAL HISTORY: Former tobacco abuse. Denied alcohol or drug use. FAMILY HISTORY: The patient did not answer questions. PHYSICAL EXAMINATION: VITAL SIGNS: Blood pressure 136/67, heart rate 86, respiratory rate 20, O2 saturation 96% on room air, temp 98.2. GENERAL: Alert, oriented, mostly nonverbal communication. Resting comfortably in bed, in no acute distress. EYES: Pupils equal, round, reactive to light. Extraocular muscles intact. HEENT: Moist mucous membranes. The patient is unwilling to open mouth, however , would stick out tongue. No nasal discharge. NECK: No lymphadenopathy. No thyromegaly. CARDIOVASCULAR: 2/6 systolic murmur. Regular rate and rhythm. RESPIRATORY: Clear to auscultation bilaterally. No wheezes. No use of accessory muscles of respiration. ABDOMEN: Mildly distended. Soft. Mildly tender to palpation diffusely. No rebound or guarding. EXTREMITIES: No edema and no cyanosis. SKIN: No rashes or lesions. NEUROLOGICAL: Cranial nerves 2 through 12 intact. 5/5 strength in 3/4 extremities with 4/4 strength in the left lower extremity. Reflexes 2+ in all 4 extremities. Sensation grossly intact. The patient appears mildly confused and unwilling to answer most questions except with nodding yes or no, however, was able to speak upon asking the patient name and location. LABORATORY DATA: Sodium 139, potassium 4.2, chloride 94, CO2 26, BUN 62, creatinine 8.16, GFR 6, AST 12, ALT 7, alkaline phosphatase 179, T bilirubin 0.6. Troponin 0.027. Lactic acid 1.0. PT 16.2, INR 1.3, PTT 30.9. WBC 3.9, hemoglobin 12.1, hematocrit 39.9, and platelet count 158. ASSESSMENT: 1. Hypertensive intraventricular hemorrhage. 2. End-stage renal disease, on hemodialysis. 3. Chronic obstructive pulmonary disease. 4. Hypertension. 5. Former tobacco abuse. 6. History of hemorrhagic cerebrovascular accident. 7. Coronary artery disease. PLAN: The patient currently on a Cardene drip at 10. This will be continued with goal less than 140/[address] Sheffield with Nephrology has been consulted. Dr. Maurice is regular rn dermatology. Plan is to monitor the patient overnight and likely consider dialysis tomorrow. The patient has labetalol IV p.r.n, but currently on cardene gtt. Keppra 500 b.i.d. for seizure prophylaxis per primary team. We will continue IV medications at this time. Per reviewing the patient's medication list, majority of medications are blood pressure medications that can be held while the patient is on cardene gtt. We will restart the patient's home medicines as appropriate once the patient is tolerating p.o. We will assist with monitoring vital signs and intake and output. SCDs for VTE prophylaxis as the patient has intraventricular hemorrhage. Continue Protonix 40 mg IV daily for GI ppx and pt's h/o GERD. Code status: Full We appreciate the opportunity to participate in the care of this patient. We will continue to follow while the patient is admitted. This patient was seen and evaluated with Dr. Chandler, who agrees with the assessment and plan. Job ID: [id number] [facility]
[2018-11-08 06:00] LABS: #Lymphocytes 0.3 thou/uL (1.20-3.40); #Monocytes 0.5 thou/uL (0.11-0.59); #Neutrophils 5.5 thou/uL (1.40-6.50); %Eosinophils 0.7 % (0.0-10.0); %Lymphocytes 4.9 % (21.0-51.0); %Monocytes 7.3 % (0.0-10.0); %Neutrophils 87.2 % (42.0-75.0); Hemoglobin 11.1 g/dL (12.0-16.0); Mean Corpuscular HGB CONC 31.1 g/dL (32.0-36.0); Mean Corpuscular Hemoglobin 28.1 pg (27.0-31.0); Mean Corpuscular Volume 90.4 fL (78.0-98.0); Mean Platelet Volume 9.5 fL (7.4-10.4); Platelet Count 178 thou/uL (130-400); RBC Distribution Width 14.8 % (11.5-14.5); Red Blood Cell (RBC) Count 3.95 mill/uL (4.20-5.40); White Blood Cell (WBC) Count 6.4 thou/uL (4.8-10.8)
[2018-11-08 06:14] LABS: Anion Gap 20 mmol/L (10-20); BUN (Urea Nitrogen) 59 mg/dL (9.8-20.1); Calc. Creatinine Clearance 6 mL/min (70-130); Calcium 8.5 mg/dL (7.8-10.44); Carbon Dioxide 19 mmol/L (22-29); Chloride 88 mmol/L (98-107); Estimated GFR-MDRD 6; Glucose 97 mg/dL (70-105); Sodium 123 mmol/L (136-145)
--- NOTE | 2018-11-08 06:46 | PDOC.FM ---
- Subjective Subjective: NAEO. All but 2 pressures >140 systolic overnight on cardene drip. Patient oriented to person on exam only per nursing staff. Would not answer questions verbally but did follow commands and nodded yes or no upon questioning. - Objective MAR Reviewed: Yes Vital Signs & Weight: Vital Signs (12 hours) Temp Pulse Ox 11/08/18 03:00 98.3 F 11/07/18 23:00 98.6 F 11/07/18 19:10 95 11/07/18 19:00 98.0 F Weight Weight 51.2 kg Most Recent Monitor Data Heart Rate from ECG 82 NIBP 131/70 NIBP BP-Mean 97 Respiration from ECG 21 SpO2 94 I&O: 11/06/18 11/07/18 11/08/18 06:59 06:59 06:59 Intake Total 1954 Output Total 35 Balance 1919 Result Diagrams: 11/08/18 05:17 11/08/18 05:17 Phys Exam - Physical Examination Constitutional: NAD HEENT: moist MMs Neck: supple, full ROM Respiratory: no wheezing, no rales, no rhonchi, clear to auscultation bilateral Cardiovascular: RRR, no significant murmur Musculoskeletal: no edema, pulses present GCS score of 13; patient not fully cooperative on exam Deviation from normal: Oriented to person only per nursing staff Skin: no rash, normal turgor Dx/Plan (1) Hemorrhagic cerebrovascular accident (CVA) Code(s): I61.9 - NONTRAUMATIC INTRACEREBRAL HEMORRHAGE, UNSPECIFIED Status: Acute (2) Intracranial hemorrhage Code(s): I62.9 - NONTRAUMATIC INTRACRANIAL HEMORRHAGE, UNSPECIFIED Status: Acute (3) CHF (congestive heart failure) Code(s): I50.9 - HEART FAILURE, UNSPECIFIED Status: Chronic (4) COPD (chronic obstructive pulmonary disease) Status: Chronic (5) ESRD (end stage renal disease) on dialysis Code(s): N18.6 - END STAGE RENAL DISEASE; Z99.2 - DEPENDENCE ON RENAL DIALYSIS Status: Chronic (6) GERD (gastroesophageal reflux disease) Code(s): K21.9 - GASTRO-ESOPHAGEAL REFLUX DISEASE WITHOUT ESOPHAGITIS Status: Chronic (7) HTN (hypertension) Code(s): I10 - ESSENTIAL (PRIMARY) HYPERTENSION Status: Chronic (8) History of hemorrhagic cerebrovascular accident (CVA) without residual deficits Code(s): Z86.73 - PRSNL HX OF TIA (TIA), AND CEREB INFRC W/O RESID DEFICITS Status: Chronic (9) Hyponatremia Code(s): E87.1 - HYPO-OSMOLALITY AND HYPONATREMIA Status: Acute (10) Normocytic anemia Code(s): D64.9 - ANEMIA, UNSPECIFIED Status: Chronic - Plan Plan: 57YOF w/ a PMH significant for HTN, ESRD on HD, CHF, h/o prior hemorrhagic CVA, and CAD who was transferred from the [place] [facility] after presenting there due to AMS and was determined to have had a second hemorrhagic stroke with ICH noted on head CT. Hemorrhagic CVA w/ Intracranial hemorrhage: - Aware, being managed by primary team, neurosurgery. Repeat CT @ 0430 this AM showed hemorrhage appears stable/slightly improved from scan done around 0000. Mental status slightly improved this AM. - Regular neuro checks & stroke team consulted on admission - Goal SBP <140 per neuro recs. Currently at goal on Cardene drip @ 6mL/hr, will continue to wean as tolerated & plan to resume home meds once cleared by ST. - s/p Mannitol x2 - IV Keppra for seizure PPx Hyponatremia - Na down to 123 this AM from 139 on presentation. Likely 2/2 cerebral salt wasting vs. SIADH in setting of an acute IC injury/bleed. - Will continue to monitor & consider giving hypertonic saline due to significant acute drop after discussing case with nephrology. Normocytic anemia - Hgb stable at 11 this AM. Will continue to monitor. HTN - Goal in setting of ICH per neurosurgery is to maintain SBP <140. - Will resume home meds once tolerating PO and wean off drip as tolerated. CHF - Aware, will resume HH, fluid restricted diet once tolerating PO. CAD - Aware, will resume home meds once tolerating PO. ESRD on MWF HD - Cr slightly worse than on initial presentation this AM but K WNLs at 4. Possible HD today but may require transfer to tertiary center per nephro. COPD - Aware, does not appear to be on any home meds but will monitor respiratory status closely. h/o prior hemorrhagic CVA - Aware, patient will need tight control of BPs once off the cardene drip. Will adjust home meds accordingly to maintain SBP of at least <140. GERD - Will continue IV GI PPx & resume PO meds once tolerating PO. ABx: none IVFs: none GI PPx: protonix DVT PPx: none Addendum - Attending - Attending Attestation Date/Time: 11/08/18 1019 I personally evaluated the patient and discussed the management with Dr. Simpson. I agree with the History, Examination, Assessment and Plan documented above with any addition or exceptions noted below. Patient admitted yesterday by [facility] for new onset hemorrhagic CVA and intraventricular bleed in the setting of history of previous hemorrhagic CVA. Patients imaging shows stable hematoma with some improvement in ventriculomegaly. She has been deemed a nonoperative candidate and so care has been transferred to our team for medical mgmt. Patient is awake and will respond to command but is nonverbal and sleepy. She is s/p Mannitol overnight. BP stable on Cardene drip. She did have significant drop in her sodium level, likely 2/2 SIADH from her brain bleed or less likely cerebral salt wasting as patietn does not produce significant urine. She is overdue for HD. Will discuss with Nephrology her dialysis regimen and her sodium levels. Will need standard post-CVA care and therapy services. Holding anticoagulation.
--- NOTE | 2018-11-08 07:10 | PRG ---
DATE OF SERVICE: 11/08/2018 I personally interviewed and examined the patient and agreed with documentation of Bobbi Key PA-C, dated 11/07/2018. Briefly, Ela Mike is a 57-year-old woman on dialysis, who came in to the hospital yesterday with acute onset headache and was found to have intraventricular hemorrhage in the left lateral ventricle and 3rd ventricle. The ventricular system above the aqueduct was slightly dilated. The 4th ventricle looked normal at that time. She underwent dialysis yesterday and there may have been some neurological changes overnight, they have since resolved. A scan around the midnight showed slight increase in size of the ventricles and another scan has been performed this morning. When I met Ms. Mike in her ICU room this morning, she was blind in the right lateral decubitus position. She wakes and converses with me. She moves all her extremities. I do not find the facial weakness that was reported previously. I reviewed this morning the CT scan and there has been a spontaneous improvement. Perhaps, some of the clot washed away or moved down out of the way, but the CSF seems to be circulating better because the lateral ventricles including the anterior horns and the temporal horns are decreased in size. This morning, sodium was concerningly low, which she is on dialysis. I am not sure whether she rests chronically. ASSESSMENT AND PLAN: I think, Ms. Mike is very unlikely to require any surgical intervention. It will be quite important over the next 2 to 3 weeks to run her dialysis as smoothly and slowly as possible. Large fluid shifts can exacerbate any intracranial pressure issues. As little heparin as possible can be used in the lines to keep her re- hemorrhage risk as low as possible, and her blood pressure can be kept less than 150 during her dialysis that would be ideal as well. We will consult the Medicine Team. This non-traumatic spontaneous intraventricular hemorrhage could be placed on their service. Job ID: [id number] [facility]
--- NOTE | 2018-11-08 07:34 | CT ---
PRELIMINARY REPORT/[facility]/EMERGENCY AFTER HOURS PROCEDURE: EXAM: CT Head Without Contrast EXAM DATE/TIME: 11/08/2018 12:13 AM CLINICAL HISTORY: 57 years old, female; Speech disturbance; Aphasia; Patient HX: PT had recent intracerebral hemorrhagic stroke. PT symptoms started worsening at 2350. Aphasic, RT sided facial droop new onset. TECHNIQUE: Imaging protocol: Axial computed tomography images of the head without contrast. COMPARISON: CTA Angio Head W WO Con 11/07/2018 2:13 PM FINDINGS: Left basal ganglia hemorrhage with extension into the ventricular system is again demonstrated. Mild unchanged dilatation of the lateral, third and fourth ventricles. Minimal left frontal midline shift at the septum pellucidum level measuring 3 mm, without change. No new or enlarging hemorrhage. The left frontal clot measures roughly 3 x 3 cm. No developing infarct. No calvarial fracture or destructive process. Imaged paranasal sinuses, mastoid air cells, globes and orbits are unremarkable. IMPRESSION: No change in left basal ganglia intra-axial hemorrhage with extension into the ventricular system wit h mild 3 mm leftward midline shift and mild ventriculomegaly, stable. No developing acute infarct Thank you for allowing us to participate in the care of your patient. Dictated and Authenticated by: Stephan Troy MD 11/08/2018 12:30 AM Central Time ([place] & [place]) FINAL REPORT CT HEAD NONCONTRAST PERFORMED ON AN EMERGENCY BASIS: Date: 11/08/18 Time: 0014 hours HISTORY: Intracranial hemorrhage. Altered mental status. COMPARISON: 11/07/2018. FINDINGS: Agree with the preliminary report by Dr. Troy from [facility]. Large left basal ganglia and caudate head hematoma with intraventricular extension is stable. Persistent mild leftward shift of the septum pellucidum and dilatation of the ventricular system. Blood along the ten torium may have increased slightly. Code QA. Transcribed Date/Time: 11/08/2018 7:46 AM
--- NOTE | 2018-11-08 07:41 | CT ---
CT HEAD: Date: 11/08/18 CLINICAL HISTORY: Intracranial hemorrhage, follow-up. COMPARISON: Exam from earlier same date. FINDINGS: Redemonstration of prominent sized hemorrhage centered at the left frontal horn with associated bilat eral intraventricular hemorrhage and ventriculomegaly. Size of the dominant hemorrhagic focus at the left frontal horn is grossly stable. Rightward subfalcine herniation measures approximately 8 mm. The re is generalized sulcal effacement. IMPRESSION: Redemonstration of prominent sized hematoma occupying the left frontal horn with associated intravent ricular hemorrhage producing obstructive hydrocephalus and rightward subfalcine herniation, grossly s table. Recommend continued imaging follow-up. POS: CHELSEY
--- NOTE | 2018-11-08 08:24 | PRG ---
DATE OF SERVICE: 11/08/2018 SUBJECTIVE: Ela Mike remains in the ICU on a Cardene drip at 6 mg/hr. OBJECTIVE: VITAL SIGNS: Blood pressure 131/70, pulse 82, temperature 98, saturations are 98% on room air, and respirations 18. GENERAL: No distress. NEUROLOGIC: She is appropriate. CHEST: No wheezing or crackles. CARDIAC: Normal S1 and S2. No gallops. ABDOMEN: No masses. LABORATORY DATA: Her white count is 6000. Creatinine is 8.2. ASSESSMENT: 1. Hypertension. 2. Chronic renal failure. 3. Intracerebral hemorrhage. There is a large left basal ganglia, caudate head hematoma, intraventricular extension, stable. PLAN: Continue to wean blood pressure medication if she can swallow. Pulmonary will follow while in the ICU. PT, supportive care. Job ID: [id number]
[2018-11-08] MEDS ORDERED: Prevnar 13-Val Conj/PF 0.5 ML SYRINGE IM ONE (09:00)
[2018-11-08] MEDS: Pantoprazole 40 MG VIAL IVP SCH (09:30)
--- NOTE | 2018-11-08 12:08 | PRG ---
DATE OF SERVICE: 11/08/2018 SUBJECTIVE: Patient was seen and examined at bedside and overnight events noted. Patient denies any shortness of breath or chest pain or palpitation. No history of nausea or vomiting or diarrhea or fever or chills or cramps. OBJECTIVE: GENERAL: This is a thin built female, in no apparent distress. VITAL SIGNS: Temperature 97.8, pulse 86, respirations 18, and blood pressure 134/73. HEENT: Atraumatic, normocephalic. Oral mucosa is moist. Puffy face. NECK: Supple. CARDIOVASCULAR: S1, S2 heard. Rate and rhythm regular. RESPIRATORY: Clear to auscultation. GASTROINTESTINAL: Abdomen is soft. MUSCULOSKELETAL: No tenderness. 1+ edema. DERMATOLOGIC: No skin rash. NEUROLOGIC: Alert and awake and oriented X3. No focal neurologic deficits. Moving all the extremities. PSYCHIATRIC: Mood and affect normal. LABORATORY DATA: Sodium is 123, potassium is 4.0, BUN is 59, and creatinine is 8.2. ASSESSMENT AND PLAN: 1. End-stage renal disease. We will plan for gentle dialysis today. Plan is to have 3 hours of dialysis with blood flow of 300 to 500, and fluid removal as tolerated. The patient is fluid overloaded, puffy face, and hyponatremic, but due to the concern for fluid shift and her intracranial processes, plan is to have gentle ultrafiltration, and also we will monitor blood pressure closely. 2. Recent cerebrovascular accident with hydrocephalus. 3. Hypertension. 4. Edema. 5. Anemia of chronic disease. 6. We will have dialysis as tolerated. We will follow with Neurosurgery. Continue close monitoring. The patient might need daily gentle dialysis and ultrafiltration if tolerated. We will follow. Job ID: [id number]
[2018-11-08 17:43] LABS: Anion Gap 18 mmol/L (10-20); BUN (Urea Nitrogen) 21 mg/dL (9.8-20.1); Calc. Creatinine Clearance 11 mL/min (70-130); Calcium 9.5 mg/dL (7.8-10.44); Carbon Dioxide 23 mmol/L (22-29); Chloride 96 mmol/L (98-107); Estimated GFR-MDRD 13; Glucose 73 mg/dL (70-105); Potassium 3.4 mmol/L (3.5-5.1); Sodium 134 mmol/L (136-145)
[2018-11-09] MEDS: niCARdipine 25 MG in Sodium Chloride 0.9% 250 ML 240 ML IVPB PRN ×2 (01:03→05:42)
[2018-11-09 05:20] LABS: Anion Gap 21 mmol/L (10-20); BUN (Urea Nitrogen) 25 mg/dL (9.8-20.1); Calc. Creatinine Clearance 9 mL/min (70-130); Calcium 8.8 mg/dL (7.8-10.44); Carbon Dioxide 21 mmol/L (22-29); Chloride 98 mmol/L (98-107); Estimated GFR-MDRD 10; Glucose 63 mg/dL (70-105); Potassium 3.5 mmol/L (3.5-5.1); Sodium 136 mmol/L (136-145)
[2018-11-09] MEDS ORDERED: Dextrose 5 % And 0.9 % NaCl 1,000 ML IV SCH (07:00)
--- NOTE | 2018-11-09 07:28 | PRG ---
DATE OF SERVICE: 11/09/2018 I saw Ms. Mike in ICU room this morning. She is resting comfortably in a left lateral decubitus position. When I comment about her fingernails, she wakes up and shows them to me on both hands. She follows commands by squeezing and wiggling her toes. She prefers to keep her eyes closed as her head hurts. Her vital signs seem reasonable and her latest CT scan done yesterday morning shows improvement in the ventricular size and less intraventricular hemorrhage. I do not believe that Ms. Mike will warrant any surgical intervention. The neuro checks can be q.6 now. Her blood pressure needs to be controlled. All dialysis for the next few weeks needs to be done as absolutely slowly as possible without any significant fluid shifts and with a small amount of heparin just enough to keep the tubing clean but without thinning her blood significantly. A followup CT scan of the brain should be done in about 3 weeks or sooner for any neurological decline. We will ask the Medicine team to take over her care. Job ID: [id number]
--- NOTE | 2018-11-09 07:50 | PDOC.FM ---
- Subjective Subjective: NAEO. GCS score unchanged at 13 again this AM. Patient failed swallow study with speech yesterday so is still on the cardene drip for BP control. Reports pain in her right shoulder. - Objective MAR Reviewed: Yes Vital Signs & Weight: Vital Signs (12 hours) Temp Pulse Ox 11/09/18 04:00 98.5 F 11/09/18 00:00 98.5 F 11/08/18 20:00 95 11/08/18 19:00 98.3 F Weight Admit Weight 50.802 kg Weight 47.3 kg Most Recent Monitor Data Heart Rate from ECG 90 NIBP 127/63 NIBP BP-Mean 84 Respiration from ECG 22 SpO2 96 I&O: 11/07/18 11/08/18 11/09/18 06:59 06:59 06:59 Intake Total 0425 766 Output Total 35 32 Balance 1920 734 Result Diagrams: 11/08/18 05:17 11/09/18 04:26 Phys Exam - Physical Examination Constitutional: NAD HEENT: moist MMs Neck: supple, full ROM Respiratory: no wheezing, no rales, no rhonchi, clear to auscultation bilateral Cardiovascular: RRR, no significant murmur Gastrointestinal: soft, non-tender, no distention, positive bowel sounds Musculoskeletal: no edema, pulses present decreased ROM in RUE w/ 3/5 oyster unloader strength on the R and 5/5 on the left Deviation from normal: unable to assess orientation as patient would not speak only nodded yes or no Skin: no rash, normal turgor Dx/Plan (1) Hemorrhagic cerebrovascular accident (CVA) Code(s): I61.9 - NONTRAUMATIC INTRACEREBRAL HEMORRHAGE, UNSPECIFIED Status: Acute (2) Intracranial hemorrhage Code(s): I62.9 - NONTRAUMATIC INTRACRANIAL HEMORRHAGE, UNSPECIFIED Status: Acute (3) CHF (congestive heart failure) Code(s): I50.9 - HEART FAILURE, UNSPECIFIED Status: Chronic (4) COPD (chronic obstructive pulmonary disease) Status: Chronic (5) ESRD (end stage renal disease) on dialysis Code(s): N18.6 - END STAGE RENAL DISEASE; Z99.2 - DEPENDENCE ON RENAL DIALYSIS Status: Chronic (6) GERD (gastroesophageal reflux disease) Code(s): K21.9 - GASTRO-ESOPHAGEAL REFLUX DISEASE WITHOUT ESOPHAGITIS Status: Chronic (7) HTN (hypertension) Code(s): I10 - ESSENTIAL (PRIMARY) HYPERTENSION Status: Chronic (8) History of hemorrhagic cerebrovascular accident (CVA) without residual deficits Code(s): Z86.73 - PRSNL HX OF TIA (TIA), AND CEREB INFRC W/O RESID DEFICITS Status: Chronic (9) Hyponatremia Code(s): E87.1 - HYPO-OSMOLALITY AND HYPONATREMIA Status: Acute (10) Normocytic anemia Code(s): D64.9 - ANEMIA, UNSPECIFIED Status: Chronic - Plan Plan: 57YOF w/ a PMH significant for HTN, ESRD on HD, CHF, h/o prior hemorrhagic CVA, and CAD who was transferred from the [place] ER after presenting there due to AMS and was determined to have had a second hemorrhagic stroke with ICH noted on head CT. Hemorrhagic CVA w/ Intracranial hemorrhage: - Aware, not a surgical candidate per neurosurgery as repeat imaging yesterday showed mild improvement and mental status has remained stable. Recommended f/u as an outpatient and Q6H neurochecks w/ tight BP control with SBP <150. Will repeat CT brain should any acute neurologic changes be noted. - stroke team on board as well as CM for rehab screen for likely placement upon discharge - Currently at goal on Cardene drip @ 6mL/hr, will continue to wean as tolerated & plan to resume home meds once cleared by - JOEL Boggs for seizure PPx Hypoglycemia - BG of 63 this AM. Patient given jello on exam this AM with ok from ST. Will consider starting on D5W NS @ 50mL/hr but will get an ok from nephro before starting. Hyponatremia, resolved - Na back up to 136 this AM s/p HD yesterday. Likely 2/2 cerebral salt wasting vs. SIADH in setting of an acute IC injury/bleed. - Will continue to monitor. Normocytic anemia - Hgb stable at 11 this AM. Will continue to monitor. HTN - Goal in setting of ICH per neurosurgery is to maintain SBP <150. - Will resume home meds once tolerating PO and wean off drip as tolerated. CHF - Aware, will resume HH, fluid restricted diet once tolerating PO. CAD - Aware, will resume home meds once tolerating PO. ESRD on MWF HD - Cr slightly worse this AM s/p HD yesterday but K WNLs at 4. Possible HD again today since doing gentle ultrafiltration in each session. Will defer to nephrology who is on the case. Appreciate recs. COPD - Aware, does not appear to be on any home meds but will monitor respiratory status closely. h/o prior hemorrhagic CVA - Aware, patient will need tight control of BPs once off the cardene drip. Will adjust home meds accordingly to maintain SBP of at least <140. GERD - Will continue IV GI PPx & resume PO meds once tolerating PO. ABx: none IVFs: none GI PPx: protonix DVT PPx: SCDs Addendum - Attending - Attending Attestation Date/Time: 11/09/18 1050 I personally evaluated the patient and discussed the management with Dr. Simpson. I agree with the History, Examination, Assessment and Plan documented above with any addition or exceptions noted below. Patient here with acute CVA and ICH. This is stable and nonoperative per NSGY. She is doing considerably better today. Mentation improved and able to respond to questions and sit up in chair. Working with speech to ensure she is safe to take oral meds so we can transition her off Cardene drip. Will consult Neuro due to CVA and continue therapy and other post-CVA mgmt. Await further Nephro recs relating to her HD regimen.
[2018-11-09] MEDS ORDERED: Dextrose 5% in Water 1,000 ML IV PRN (08:28)
[2018-11-09] MEDS ORDERED: Dextrose 50% Abboject 50 ML SYRINGE SLOW IVP PRN (08:28)
--- NOTE | 2018-11-09 08:42 | PRG ---
DATE OF SERVICE: 11/09/2018 SUBJECTIVE: This morning, she is little bit more responsive. She is swallowing very gently. Hopefully, she can pass the swallow test, can start on blood pressure medication by mouth and try and wean off the Cardene. OBJECTIVE: VITAL SIGNS: Blood pressure 139/75, pulse 88, saturations are 93% on room air, respirations 18. CHEST: No wheezing or crackles. CARDIAC: Normal S1 and S2. No gallops. ABDOMEN: No masses. LABORATORY DATA: Creatinine is 5.2. ASSESSMENT: 1. Intracerebral hemorrhage. 2. Hypertension. 3. Chronic renal failure. 4. Encephalopathy. PLAN: Pulmonary-cormier, smoker. Neb treatments. Hopefully, we can wean her off the Cardene to p.o. blood pressure medications. Transferred out of the ICU. Job ID: [id number]
[2018-11-09] MEDS: Pantoprazole 40 MG VIAL IVP SCH ×2 (09:56→21:58)
[2018-11-09] MEDS ORDERED: Nitroglycerin 0.4 MG TAB (25 Tab Bottle) SL PRN (10:35)
[2018-11-09] MEDS ORDERED: Amlodipine 5 MG TAB PO SCH (12:00)
[2018-11-09] MEDS ORDERED: Carvedilol 25 MG TAB PO SCH ×2 (12:00→21:00)
[2018-11-09] MEDS ORDERED: Sevelamer Carbonate 800 MG TAB PO SCH ×3 (12:00→17:00)
[2018-11-09] MEDS: Acetaminophen 500 MG TAB PO PRN (12:24)
[2018-11-09] MEDS ORDERED: Sevelamer Carbonate 800 MG TAB PO PRN ×3 (12:49→13:58)
--- NOTE | 2018-11-09 14:28 | PQF ---
DATE: 11-13-18 ATTN: DR. FAB VERDE / DR. ALEXANDRIA BARAJAS Please exercise your independent, professional judgment in responding to the clarification form. Clinical indicators are provided on the bottom of this form for your review Please check appropriate box(s): [ x ] Cerebral edema / Vasogenic edema [ ] Compression of brain Due to: [ x ] Intracranial hematoma [ ] Acute cerebral infarction [ ] Obstructive hydrocephalus [ ] Other diagnosis [ ] Unable to determine In addition, please specify: Present on Admission (POA): [x ] Yes [ ] No [ ] Unable to determine For continuity of documentation, please document condition throughout progress notes and discharge summary. Thank You. CLINICAL INDICATORS - SIGNS / SYMPTOMS / LABS: CT BRAIN 11-08-18: REDEMONSTRATION OF PROMINENT SIZED HEMORRHAGE CENTERED AT THE L FRONTAL HORN WITH ASSOCIATED BILATERAL INTRAVENTRICULAR HEMORRHAGE AND VENTRICULOMEGALY. SIZE OF THE DOMINANT HEMORRHAGIC FOCUS AT THE LEFT FRONTAL HORN IS GROSSLY STABLE. RIGHTWARD SUBFALCINE HERNIATION MEASURES APPROX. 8 MM. H&P: ALTERED MENTAL STATUS, SOME GAIT CHANGES AND SPEECH AND CONFUSION, CT JU SHOWS ACUTE INTRAVENTRICULAR HEMORRHAGE WITH OBSTRUCTIVE HYDROCEPHALUS PN DR.LAURA DE LA TORRE 11-07-18: MASS EFFECT WITH SLIGHT MIDLINE SHIFT OF THE SEPTUM PELLUCIDUM IS NOTED RISK FACTORS: PN 11-09-18: ACUTE HEMORRHAGIC CVA WITH INTRACRANIAL HEMORRHAGE H&P: CT JU SHOWS ACUTE INTRAVENTRICULAR HEMORRHAGE WITH OBSTRUCTIVE HYDROCEPHALUS TREATMENTS: PN DR. DE LA TORRE 11-07-18: PT CURRENTLY ON CARDENE DRIP, LABETALOL IV PRN, KEPPRA MAR: 11-08-18: MANNITOL IV SERIAL CT BRAIN H&P: CTA, MONITOR NEURO CHECKS EVERY HR, REPEAT CT (This form is maintained as a part of the permanent medical record) 2014 [employer]. All Rights Reserved [email or web address] Office: [phone] [facility]
--- NOTE | 2018-11-09 14:31 | PRG ---
DATE OF SERVICE: 11/09/2018 SUBJECTIVE: Patient was seen and examined at bedside and overnight events noted. Patient denies any shortness of breath or chest pain or palpitation. No history of nausea or vomiting or diarrhea or fever or chills or cramps. OBJECTIVE: GENERAL: This is a well-built female, in no apparent distress. VITAL SIGNS: Temperature 98.9. Heart rate 89. Respiratory rate 20. Blood pressure 140/68. HEENT: Atraumatic, normocephalic. Oral mucosa is moist NECK: Supple. CARDIOVASCULAR: S1, S2 heard. Rate and rhythm regular. RESPIRATORY: Clear to auscultation. GASTROINTESTINAL: Abdomen is soft. MUSCULOSKELETAL: No tenderness. No edema. DERMATOLOGIC: No skin rash. NEUROLOGIC: Alert and awake and oriented X3. No focal neurologic deficits. Moving all the extremities. PSYCHIATRIC: Mood and affect normal. LABORATORY DATA: Potassium 3.5, BUN is 25, creatinine is 5.2. ASSESSMENT AND PLAN: 1. End-stage renal disease. We will continue on dialysis as tolerated. No acute indication for dialysis today. Plan for dialysis tomorrow. We will have gentle dialysis with minimal as needed. 2. Hypertension. 3. Edema. 4. Anemia of chronic disease. Continue labs. We will have gentle dialysis as tolerated, but no dialysis today. We will continue to monitor closely everyday. Job ID: [id number]
--- NOTE | 2018-11-09 14:42 | PQF ---
DATE: 11-09-18 ATTN: DR. FAB BARAJAS Please exercise your independent, professional judgment in responding to the clarification form. Clinical indicators are provided on the bottom of this form for your review Please check appropriate box(s): [ x ] Encephalopathy: Type: [ x] Acute [ ] Subacute [ ] Chronic Etiology: [ ] Hypertensive [ ] Metabolic [ ] Toxic [ ] Other (please specify) [ ] Transient Alteration of Awareness [ ] Other diagnosis: Hemorrhagic CVA [ ] Unable to determine In addition, please specify: Present on Admission (POA): [ x ] Yes [ ] No [ ] Unable to determine For continuity of documentation, please document condition throughout progress notes and discharge summary. Thank You. CLINICAL INDICATORS - SIGNS / SYMPTOMS / LABS: ER: CONFUSED, GAIT CHANGES CONSULT NOTE KESHA 11-08-18: CONFUSION, DIFFICULTY AMBULATING, MORE CONFUSED, WHO CAME TO ER WHERE CT HEAD SHOWED EVIDENCE OF INTRACRANIAL HEMORRHAGE. CONSULT NOTE DR. REBOLLEDO 11-08-18: ENCEPHALOPATHY CT BRAIN 11-08-18: RIGHTWARD SUBFALCINE HERNIATION MEASURES APPROX. 8 MM, INTRAVENTRICULAR HEMORRHAGE PRODUCING OBSTRUCTIVE HYDROCEPHALUS RISK FACTORS: H&P: HX OF PREVIOUS HEMORRHAGIC STROKE AND HTN H&P: ASSESSMENT: HTN INTRAVENTRICULAR HEMORRHAGE TREATMENTS: H&P: NEURO CHECKS EVERY HOUR , REPEAT CT, NEURO ADMIT MAR: CARDENE IV, CLONIDINE (This form is maintained as a part of the permanent medical record) 2014 [employer]. All Rights Reserved [email or web address] Office: [phone] [facility]
[2018-11-09 14:51] LABS: Phosphorus 3.2 mg/dL (2.3-4.7)
--- NOTE | 2018-11-09 14:52 | PQF ---
DATE: 11-09-18 ATTN: DR. FAB VERDE/ DR. ALEXANDRIA BARAJAS Please exercise your independent, professional judgment in responding to the clarification form. Clinical indicators are provided on the bottom of this form for your review Please check appropriate box(s): HEART FAILURE: A. TYPE: [ ] Systolic / HFrEF [ ] Diastolic / HFpEF [ ] Combined Systolic / Diastolic B. ACUITY [ ] Acute [ ] Acute on Chronic [ ] Chronic [ ] Other diagnosis [ x ] Unable to determine, no listed Echo on file here In addition, please specify: Present on Admission (POA): [ x ] Yes [ ] No [ ] Unable to determine For continuity of documentation, please document condition throughout progress notes and discharge summary. Thank You. CLINICAL INDICATORS - SIGNS / SYMPTOMS / LABS ER: HX OF HTN, COPD, CHF, INSOMNIA, FORMER SMOKER H&P: HX OF HEMORRHAGIC STROKE, CIRRHOSIS, CHF, COPD, GERD, HTN CONSULT NOTE DR. REBOLLEDO: ESRD, STROKE, CHF, COPD, HTN RISKS: H&P: HX HTN, CHF TREATMENTS: H&P: HOME MEDS COREG MAR: COREG, IMDUR (This form is maintained as a part of the permanent medical record) 2014 [employer]. All Rights Reserved [email or web address] Office: [phone] [place]
[2018-11-09] MEDS ORDERED: hydrALAZINE 25 MG TAB PO SCH (15:00)
[2018-11-09] MEDS ORDERED: SILDENAFIL CITRATE PO SCH (15:00)
[2018-11-09] MEDS: Labetalol HCl 100 MG/20 ML VIAL SLOW IVP PRN (19:38)
[2018-11-09] MEDS ORDERED: cloNIDine 0.1 MG TAB PO SCH (21:00)
[2018-11-09] MEDS ORDERED: Non-Formulary Item 1 EACH (Benazepril Hcl [Benazepril Hcl] 20 MG) PO SCH (21:00)
[2018-11-09] MEDS: Carvedilol 25 MG TAB PO SCH (21:11)
[2018-11-09] MEDS: Atorvastatin Calcium 40 MG TAB PO SCH (21:11)
[2018-11-09] MEDS ORDERED: Sodium Chloride 0.9% (PF) 10 ML VIAL FS PRN (21:15)
[2018-11-10] MEDS: Labetalol HCl 100 MG/20 ML VIAL SLOW IVP PRN ×4 (02:03→20:04)
[2018-11-10 05:18] LABS: Anion Gap 18 mmol/L (10-20); BUN (Urea Nitrogen) 32 mg/dL (9.8-20.1); Calc. Creatinine Clearance 7 mL/min (70-130); Calcium 8.2 mg/dL (7.8-10.44); Carbon Dioxide 20 mmol/L (22-29); Chloride 100 mmol/L (98-107); Estimated GFR-MDRD 7; Glucose 85 mg/dL (70-105); Potassium 3.9 mmol/L (3.5-5.1); Sodium 134 mmol/L (136-145)
--- NOTE | 2018-11-10 07:05 | PDOC.FM ---
- Subjective Subjective: pt resting comfortably in bed, wiggles toes, responds to questions inappropriately. - Objective Vital Signs & Weight: Vital Signs (12 hours) Temp Pulse BP Pulse Ox 11/10/18 04:00 99.1 F 11/10/18 02:03 85 154/80 H 11/10/18 00:00 98.1 F 11/09/18 19:52 95 11/09/18 19:38 86 166/93 H Weight Admit Weight 50.802 kg Weight 47.8 kg Most Recent Monitor Data Heart Rate from ECG 90 NIBP 170/91 NIBP BP-Mean 117 Respiration from ECG 27 SpO2 93 I&O: 11/09/18 11/10/18 11/11/18 06:59 06:59 06:59 Intake Total 766 712 Output Total 32 10 Balance 734 702 Result Diagrams: 11/08/18 05:17 11/10/18 04:04 Phys Exam - Physical Examination Constitutional: NAD HEENT: moist MMs Neck: no JVD Respiratory: clear to auscultation bilateral Cardiovascular: RRR, no significant murmur Gastrointestinal: soft, no distention Musculoskeletal: pulses present Neurological: moves all 4 limbs somnolent on exam, not fully responding to commands Skin: no rash Dx/Plan (1) Hemorrhagic cerebrovascular accident (CVA) Code(s): I61.9 - NONTRAUMATIC INTRACEREBRAL HEMORRHAGE, UNSPECIFIED Status: Acute (2) Hyponatremia Code(s): E87.1 - HYPO-OSMOLALITY AND HYPONATREMIA Status: Acute (3) Intracranial hemorrhage Code(s): I62.9 - NONTRAUMATIC INTRACRANIAL HEMORRHAGE, UNSPECIFIED Status: Acute (4) Normocytic anemia Code(s): D64.9 - ANEMIA, UNSPECIFIED Status: Chronic (5) CAD (coronary artery disease) Code(s): I25.10 - ATHSCL HEART DISEASE OF [place] CORONARY ARTERY W/O ANG PCTRS Status: Chronic (6) CHF (congestive heart failure) Code(s): I50.9 - HEART FAILURE, UNSPECIFIED Status: Chronic (7) COPD (chronic obstructive pulmonary disease) Status: Chronic (8) ESRD (end stage renal disease) on dialysis Code(s): N18.6 - END STAGE RENAL DISEASE; Z99.2 - DEPENDENCE ON RENAL DIALYSIS Status: Chronic (9) GERD (gastroesophageal reflux disease) Code(s): K21.9 - GASTRO-ESOPHAGEAL REFLUX DISEASE WITHOUT ESOPHAGITIS Status: Chronic (10) HTN (hypertension) Code(s): I10 - ESSENTIAL (PRIMARY) HYPERTENSION Status: Chronic - Plan Plan: Hemorrhagic CVA w/ Intracranial hemorrhage: - not a surgical candidate per neurosurgery as repeat imaging yesterday showed mild improvement and mental status has remained stable. Recommended f/u as an outpatient and Q6H neurochecks w/ tight BP control with SBP <150. Will repeat CT brain should any acute neurologic changes be noted. - stroke team on board as well as CM for rehab screen for likely placement upon discharge - Cardene drip DCd yesterday, BP over goal at night, nursing staff reported pt lay on cuff so pressures not accurate - obtain accurate BPs today, restart cardene drip if above goal - IV Keppra for seizure PPx Hyponatremia, resolved - Likely 2/2 cerebral salt wasting vs. SIADH in setting of an acute IC injury/ bleed. - Will continue to monitor. Normocytic anemia - Hgb stable. Will continue to monitor. HTN - Goal in setting of ICH per neurosurgery is to maintain SBP <150. - continue home meds, prn Labetolol CHF - Aware, continue home meds, fluid restricted diet CAD - Aware, contine home meds ESRD on MWF HD - nephrology consulted, appreciate recs . COPD - Aware, does not appear to be on any home meds but will monitor respiratory status closely - prn nebs GERD - continue home meds ABx: none IVFs: none GI PPx: protonix DVT PPx: SCDs Dispo: close monitoring of neuro exam in CCU, BP<150, DC planning Addendum - Attending - Attending Attestation Date/Time: 11/10/18 9289 I personally evaluated the patient and discussed the management with Dr. Youssef. I agree with the History, Examination, Assessment and Plan documented above with any addition or exceptions noted below. Patient here for post hemorrhagic CVA with ICH care. Her blood pressure continues to be overall at goal, will increase her anti HTN control with resumption of more home meds today. Patient is improved in that she will give simple answers to questions. Exam unchanged. Continue therapy and work on placement. Hopeful for HD that will help with volume overload and HTN though we have to be cautious with HD so as not to cause sudden changes in ICP.
[2018-11-10] MEDS: Carvedilol 25 MG TAB PO SCH ×2 (07:53→21:16)
[2018-11-10] MEDS: Megestrol Acetate 40 MG TAB PO SCH (07:53)
[2018-11-10] MEDS: Varenicline Tartrate 0.5 MG TAB PO SCH (07:53)
[2018-11-10] MEDS: Pantoprazole 40 MG VIAL IVP SCH (07:53)
[2018-11-10] MEDS: Amlodipine 5 MG TAB PO SCH (07:54)
[2018-11-10] MEDS: Polyethylene Glycol 3350 17 GM Packet PO SCH (07:54)
[2018-11-10] MEDS: Folic Acid/Vit B Comp W-C PO SCH (07:58)
[2018-11-10] MEDS ORDERED: Amlodipine 5 MG TAB PO SCH (09:00)
[2018-11-10] MEDS ORDERED: Famotidine 20 MG TAB PO SCH (09:00)
--- NOTE | 2018-11-10 09:28 | PRG ---
DATE OF SERVICE: 11/10/2018 SUBJECTIVE: The patient is doing well. Blood pressure has been somewhat difficult to manage. OBJECTIVE: VITAL SIGNS: Temperature 99.1, pulse 90, blood pressure systolic ranges from 150s to 170s, and O2 saturation 93%. 24-hour intake 712, output 10. She is due for dialysis later today. HEENT: Unremarkable. NECK: No JVD. LUNGS: Clear. CARDIAC: S1, S2. Regular. ABDOMEN: Soft. EXTREMITIES: No edema. LABORATORY DATA: Sodium 134, potassium 3.9, BUN 32, creatinine 6.8. ASSESSMENT: 1. Status post intracerebral hemorrhage. 2. Hypertension. 3. Chronic renal failure. 4. Encephalopathy. PLAN: The patient can be moved out to the stroke unit. I will add some p.r.n. clonidine for blood pressure greater than 160. She is to continue on amlodipine and carvedilol for antihypertensive control. This is a chronic problem, not acute problem and does not require IV continuous drip medication. Job ID: [id number]
[2018-11-10] MEDS: cloNIDine 0.2 MG TAB PO PRN ×2 (09:58→10:28)
[2018-11-10] MEDS ORDERED: Lidocaine 4% Cream 5 GM TUBE w/ Tegaderm TOP PRN (10:00)
--- NOTE | 2018-11-10 10:06 | PRG ---
DATE OF SERVICE: 11/10/2018 SUBJECTIVE: The patient is a 57-year-old female, status post left-sided intraventricular hemorrhage. She did subsequently developed some ventriculomegaly, however that resolved quickly. It was improved on a repeat CT. She is a known dialysis patient and that is being managed by the Medical and Nephrology teams. OBJECTIVE: On exam this morning, she awakens easily to voice. She tells me her name and her location. She was moving all 4s without any significant or focal weakness. Her neurologic exam appears to be improving slowly with time. At this time, no plans for acute neurosurgical intervention is anticipated. Job ID: [id number]
[2018-11-10] MEDS: Acetaminophen 500 MG TAB PO PRN (10:28)
[2018-11-10] MEDS ORDERED: Sevelamer Carbonate 800 MG TAB PO PRN (11:56)
--- NOTE | 2018-11-10 13:02 | PRG ---
DATE OF SERVICE: 11/10/2018 The patient seen and examined, I agree with Sun Macedo's evaluation on 11/10/2018. The patient is alert and somewhat interactive with appropriate verbal, although some disorientation. She is nonfocal. I do agree that she could safely be transferred to the floor and have no specific neurosurgical recommendations at this point. We will defer to the medical service regarding disposition. Job ID: [id number]
--- NOTE | 2018-11-10 13:09 | CON ---
DATE OF CONSULTATION: 11/10/2018 CONSULTING PHYSICIAN: Family Medicine Service. IMPRESSION: 1. Intraventricular hemorrhage. 2. Hypertension. 3. End-stage renal disease. 4. History of congestive heart failure. PLAN: Continue current blood pressure management and other supportive measures. HISTORY OF PRESENT ILLNESS: Ms. Mike is a 57-year-old black female, who is a dialysis patient. She had acute headache and confusion and presented to the emergency room a few days ago. Her CT scan of the brain revealed evidence of an interventricular hemorrhage, primarily affecting the left frontal horn and third ventricle. Neurosurgery was consulted. They did not feel there was any need for shunting. The patient is currently in the ICU and receiving dialysis. She complains that she still has headache and some nausea. There has not been any vomiting. No seizure-like activity has occurred. PAST MEDICAL HISTORY: Reported history of stroke, which is not clinically apparent on the CAT scan, cirrhosis, CHF, COPD, and tobacco use. ALLERGIES: NONE. FAMILY HISTORY: Noncontributory. REVIEW OF SYSTEMS: Could not be obtained due to her current level of cooperativeness. PHYSICAL EXAMINATION: VITAL SIGNS: Blood pressure 160/89, pulse 89, respirations 27, and saturations 100%. HEENT: Pupils equal and reactive. Conjunctivae clear. Oropharynx clear. NECK: Supple. No lymphadenopathy. EXTREMITIES: No cyanosis or edema. NEUROLOGIC: She is easily arousable. She followed commands appropriately. She was not willing to carry on a conversation. Face appears to be symmetric. She has some subtle weakness of right hand precinct captain. Tone appears normal bilaterally. Sensation was intact. IMAGING STUDIES: CT images were reviewed. SUMMARY: I agree with current management. I do not see any need for any changes at this point. I will be available if there are any further problems that I could address. Job ID: [id number]
--- NOTE | 2018-11-10 13:10 | PRG ---
DATE OF SERVICE: 11/10/2018 SUBJECTIVE: Patient was seen and examined at bedside and overnight events noted. Patient denies any shortness of breath or chest pain or palpitation. No history of nausea or vomiting or diarrhea or fever or chills or cramps. OBJECTIVE: GENERAL: This is a well-built female, in no apparent distress. VITAL SIGNS: Temperature 98.7. Heart rate 75. Respiratory rate 18. Blood pressure 113/77. HEENT: Atraumatic, normocephalic. Oral mucosa is moist NECK: Supple. CARDIOVASCULAR: S1, S2 heard. Rate and rhythm regular. RESPIRATORY: Clear to auscultation. GASTROINTESTINAL: Abdomen is soft. MUSCULOSKELETAL: No tenderness. No edema. DERMATOLOGIC: No skin rash. NEUROLOGIC: Alert and awake and oriented X3. No focal neurologic deficits. Moving all the extremities. PSYCHIATRIC: Mood and affect normal. LABORATORY DATA: Potassium is 3.9, BUN is 32, and creatinine is 6.8. ASSESSMENT AND PLAN: 1. End-stage renal disease. We will continue on gentle dialysis as tolerated. 2. Hypertension, stable. 3. Edema, controlled. 4. Anemia. Monitor hemoglobin. 5. We will continue gentle dialysis as tolerated given the intracranial bleed. Job ID: [id number]
[2018-11-10] MEDS: Sevelamer Carbonate 800 MG TAB PO SCH (16:43)
[2018-11-10] MEDS: Atorvastatin Calcium 40 MG TAB PO SCH (21:16)
[2018-11-11] MEDS: Labetalol HCl 100 MG/20 ML VIAL SLOW IVP PRN ×3 (02:26→23:28)
[2018-11-11] MEDS: cloNIDine 0.2 MG TAB PO PRN ×3 (03:33→21:03)
[2018-11-11 04:23] LABS: Anion Gap 13 mmol/L (10-20); BUN (Urea Nitrogen) 21 mg/dL (9.8-20.1); Calc. Creatinine Clearance 9 mL/min (70-130); Calcium 8.7 mg/dL (7.8-10.44); Carbon Dioxide 25 mmol/L (22-29); Chloride 100 mmol/L (98-107); Estimated GFR-MDRD 10; Glucose 98 mg/dL (70-105); Potassium 3.4 mmol/L (3.5-5.1); Sodium 135 mmol/L (136-145)
--- NOTE | 2018-11-11 06:43 | PDOC.FM ---
- Subjective Subjective: pt resting comfortably in bed, denies headache, numbness. not completely responding to questions appropriately - Objective Vital Signs & Weight: Vital Signs (12 hours) Temp Pulse BP Pulse Ox 11/11/18 04:00 99.0 F 11/11/18 03:33 162/85 H 11/11/18 02:26 86 162/85 H 11/11/18 00:00 98.9 F 11/10/18 20:04 88 164/84 H 11/10/18 19:09 96 11/10/18 19:00 99.6 F Weight Admit Weight 50.802 kg Weight 46.9 kg Most Recent Monitor Data Heart Rate from ECG 69 NIBP 164/84 NIBP BP-Mean 110 Respiration from ECG 15 SpO2 96 I&O: 11/09/18 11/10/18 11/11/18 06:59 06:59 06:59 Intake Total 766 712 475 Output Total 32 10 0 Balance 734 702 475 Result Diagrams: 11/08/18 05:17 11/11/18 03:57 Phys Exam - Physical Examination Constitutional: NAD HEENT: moist MMs Neck: full ROM Respiratory: clear to auscultation bilateral Cardiovascular: RRR, no significant murmur Gastrointestinal: no distention Musculoskeletal: pulses present Neurological: moves all 4 limbs Psychiatric: normal affect Skin: no rash Dx/Plan (1) Hemorrhagic cerebrovascular accident (CVA) Code(s): I61.9 - NONTRAUMATIC INTRACEREBRAL HEMORRHAGE, UNSPECIFIED Status: Acute (2) Hyponatremia Code(s): E87.1 - HYPO-OSMOLALITY AND HYPONATREMIA Status: Acute (3) Intracranial hemorrhage Code(s): I62.9 - NONTRAUMATIC INTRACRANIAL HEMORRHAGE, UNSPECIFIED Status: Acute (4) Normocytic anemia Code(s): D64.9 - ANEMIA, UNSPECIFIED Status: Chronic (5) CAD (coronary artery disease) Code(s): I25.10 - ATHSCL HEART DISEASE OF [place] CORONARY ARTERY W/O ANG PCTRS Status: Chronic (6) CHF (congestive heart failure) Code(s): I50.9 - HEART FAILURE, UNSPECIFIED Status: Chronic (7) COPD (chronic obstructive pulmonary disease) Status: Chronic (8) ESRD (end stage renal disease) on dialysis Code(s): N18.6 - END STAGE RENAL DISEASE; Z99.2 - DEPENDENCE ON RENAL DIALYSIS Status: Chronic (9) GERD (gastroesophageal reflux disease) Code(s): K21.9 - GASTRO-ESOPHAGEAL REFLUX DISEASE WITHOUT ESOPHAGITIS Status: Chronic (10) HTN (hypertension) Code(s): I10 - ESSENTIAL (PRIMARY) HYPERTENSION Status: Chronic - Plan Plan: Hemorrhagic CVA w/ Intracranial hemorrhage: - not a surgical candidate per neurosurgery as repeat imaging yesterday showed mild improvement and mental status has remained stable. Recommended f/u as an outpatient and Q6H neurochecks w/ tight BP control with SBP <150. Will repeat CT brain should any acute neurologic changes be noted. - stroke team on board as well as CM for rehab screen for likely placement upon discharge - Saroj robertson DCd 11/09, BP over goal at night, nursing staff reported pt lay on cuff so pressures not accurate - IV Keppra for seizure PPx Hyponatremia, stable - Likely 2/2 cerebral salt wasting vs. SIADH in setting of an acute IC injury/ bleed. - Will continue to monitor. Normocytic anemia - Hgb stable. Will continue to monitor. HTN - Goal in setting of ICH per neurosurgery is to maintain SBP <150 for two weeks - continue home meds, prn Labetolol, clonidine CHF - Aware, continue home meds, fluid restricted diet CAD - Aware, contine home meds ESRD on MWF HD - nephrology consulted, appreciate recs . COPD - Aware, does not appear to be on any home meds but will monitor respiratory status closely - prn nebs GERD - continue home meds ABx: none IVFs: none GI PPx: protonix DVT PPx: SCDs Dispo: goal BP<150, DC planning Addendum - Attending - Attending Attestation Date/Time: 11/11/18 7232 I personally evaluated the patient and discussed the management with Dr. Youssef. I agree with the History, Examination, Assessment and Plan documented above with any addition or exceptions noted below. Patient continues to improve daily. BP still not at goal, will increase her anti -HTN therapy today. Continue post CVA care and therapy. She is stable for transfer from CCU, will need placement arranged for after discharge.
[2018-11-11] MEDS: Famotidine 20 MG TAB PO SCH (08:30)
[2018-11-11] MEDS: Carvedilol 25 MG TAB PO SCH ×2 (08:30→21:03)
[2018-11-11] MEDS: Amlodipine 5 MG TAB PO SCH (08:30)
[2018-11-11] MEDS: Polyethylene Glycol 3350 17 GM Packet PO SCH ×2 (08:30→20:18)
[2018-11-11] MEDS: Sevelamer Carbonate 800 MG TAB PO SCH ×5 (08:30→20:18)
[2018-11-11] MEDS: Folic Acid/Vit B Comp W-C PO SCH (08:31)
--- NOTE | 2018-11-11 09:22 | PRG ---
DATE OF SERVICE: 11/11/2018 SUBJECTIVE: She is quiet. Does not verbalize much. OBJECTIVE: VITAL SIGNS: Temperature is 99.0, pulse 76, blood pressure 176/89. A 24-hour intake is 475, output 2000 plus. HEENT: Unremarkable. NECK: No JVD. CHEST: Clear to auscultation. CARDIAC: S1, S2 regular. ABDOMEN: Soft. EXTREMITIES: No edema. LABORATORY DATA: Sodium 135, potassium 3.4, chloride 100, CO2 of 25, BUN 21, creatinine 5.2, and glucose 98. ASSESSMENT: 1. Status post intracranial hemorrhage. 2. Hypertension. 3. Chronic renal failure. 4. Encephalopathy. PLAN: Probably needs more adjustment of her blood pressure medications. According to the Family Medicine residency note, they are going up on some of her medications. I will leave management of that up to them. No further Pulmonary/Critical Care recommendations at this time. Job ID: [id number]
[2018-11-11] MEDS: traMADol HCl 50 MG TAB PO PRN (09:30)
[2018-11-11] MEDS: Varenicline Tartrate 0.5 MG TAB PO SCH (09:31)
[2018-11-11] MEDS: Megestrol Acetate 40 MG TAB PO SCH (09:31)
--- NOTE | 2018-11-11 14:06 | PRG ---
DATE OF SERVICE: 11/11/2018 SUBJECTIVE: Patient was seen and examined at bedside and overnight events noted. Patient denies any shortness of breath or chest pain or palpitation. No history of nausea or vomiting or diarrhea or fever or chills or cramps. OBJECTIVE: GENERAL: This is a well-built female, in no apparent distress. VITAL SIGNS: Temperature blood pressure 165/91. Musculoskeletal : No tenderness, No edema HEENT: Atraumatic normocephalic Neck: Supple Cardiovascular: S1S2 heard, Rate and rhythm regular Respiratory: Clear to auscultation Gastrointestinal: Abdomen is soft Dermatologic : No skin rash Neurologic: Alert and awake and oriented X3 No focal neurologic deficits. Moving all the extremities. Psychiatric: Mood and affect normal LABORATORY DATA: Potassium 3.4, BUN is 21, creatinine is 5.2. ASSESSMENT AND PLAN: 1. End-stage renal disease. We will continue on dialysis as tolerated. No dialysis today. 2. Hyponatremia, better. Limit fluid intake. 3. Hypertension. Plan to titrate medication. 4. Edema. 5. Anemia. Monitor hemoglobin. 6. We will continue dialysis currently as possible. Job ID: [id number] MTDD
[2018-11-11] MEDS: Atorvastatin Calcium 40 MG TAB PO SCH (21:03)
[2018-11-11] MEDS: Acetaminophen 500 MG TAB PO PRN (21:03)
[2018-11-12] MEDS: Sevelamer Carbonate 800 MG TAB PO SCH ×4 (01:10→17:59)
[2018-11-12] MEDS ORDERED: hydrALAZINE 20 MG/ML VIAL SLOW IVP SCH ×3 (03:45→15:30)
[2018-11-12 05:13] LABS: Anion Gap 16 mmol/L (10-20); BUN (Urea Nitrogen) 33 mg/dL (9.8-20.1); Calc. Creatinine Clearance 7 mL/min (70-130); Calcium 8.7 mg/dL (7.8-10.44); Carbon Dioxide 25 mmol/L (22-29); Chloride 100 mmol/L (98-107); Estimated GFR-MDRD 8; Glucose 88 mg/dL (70-105); Potassium 3.9 mmol/L (3.5-5.1); Sodium 137 mmol/L (136-145)
--- NOTE | 2018-11-12 07:28 | PDOC.FM ---
- Subjective Subjective: Pt seen in dialysis. Pt denies focal weakness, numbness, or tingling. She does report a headache and back pain. - Objective MAR Reviewed: Yes Vital Signs & Weight: Vital Signs (12 hours) Temp Pulse Resp BP BP Pulse Ox 11/12/18 04:37 61 160/84 H 11/12/18 04:07 63 179/87 H 11/12/18 04:00 60 100 11/12/18 03:59 98.5 F 60 16 170/83 H 100 11/12/18 00:22 60 158/77 H 11/12/18 00:00 98.6 F 62 16 155/75 H 98 11/11/18 23:28 65 155/75 H 11/11/18 21:03 176/85 H 11/11/18 20:00 98 11/11/18 19:45 98.6 F 65 16 167/81 H 97 Weight Admit Weight 50.802 kg Weight 49.714 kg Most Recent Monitor Data Heart Rate from ECG 71 NIBP 170/79 NIBP BP-Mean 109 Respiration from ECG 16 SpO2 97 I&O: 11/11/18 11/12/18 11/13/18 06:59 06:59 06:59 Intake Total 475 750 Output Total 0 0 Balance 475 750 Result Diagrams: 11/08/18 05:17 11/12/18 04:21 Phys Exam - Physical Examination Constitutional: NAD HEENT: moist MMs Neck: no JVD Non-labored breathing, equal chest rise Musculoskeletal: no edema, pulses present Neurological: moves all 4 limbs Psychiatric: A&O x 3 Skin: cap refill <2 seconds Dx/Plan (1) Hemorrhagic cerebrovascular accident (CVA) Code(s): I61.9 - NONTRAUMATIC INTRACEREBRAL HEMORRHAGE, UNSPECIFIED Status: Acute (2) Hyponatremia Code(s): E87.1 - HYPO-OSMOLALITY AND HYPONATREMIA Status: Acute (3) Normocytic anemia Code(s): D64.9 - ANEMIA, UNSPECIFIED Status: Chronic (4) CHF (congestive heart failure) Code(s): I50.9 - HEART FAILURE, UNSPECIFIED Status: Chronic (5) ESRD (end stage renal disease) on dialysis Code(s): N18.6 - END STAGE RENAL DISEASE; Z99.2 - DEPENDENCE ON RENAL DIALYSIS Status: Chronic (6) GERD (gastroesophageal reflux disease) Code(s): K21.9 - GASTRO-ESOPHAGEAL REFLUX DISEASE WITHOUT ESOPHAGITIS Status: Chronic (7) HTN (hypertension) Code(s): I10 - ESSENTIAL (PRIMARY) HYPERTENSION Status: Chronic - Plan Plan: This is a 57 yo female with a pmh of CAD, CHF, HTN, ESRD on HD, COPD Hemorrhagic CVA -Not a surgical candidate, pt pending rehab placement, [facility] referral sent, pending response -Will require tight BP control, <140/90 for two weeks (11/21/18) -Continue keppra for seizure prophylaxis -Neurology and Neurosurgery following case, will appreciate recommendations Hyponatremia, resolved Normocytic anemia, stable HTN -Goals as above -Continue home meds, PRN labetolol, clonidine, hydralazine -Will max BP medications today to ensure goal BP is met, will see where BP is following dialysis CHF -No documented EF on file -Continue home meds, monitor for signs of overload ESRD on HD MWF -Nephrology consulted COPD -No home meds, PRN nebs GERD -continue home meds Addendum - Attending - Attending Attestation Date/Time: 11/12/18 7212 I personally evaluated the patient and discussed the management with Dr. Proctor I agree with the History, Examination, Assessment and Plan documented above with any addition or exceptions noted below. Patient alert following commands c/o headache. Blood pressure not optimally controlled will need to add agent consider hytrin 5 mg as tolerated.
--- NOTE | 2018-11-12 11:34 | PRG ---
DATE OF SERVICE: 11/12/2018 SUBJECTIVE: This is a 57-year-old female being seen for end-stage renal disease. The patient denies any nausea, vomiting, or chest pain. OBJECTIVE: CONSTITUTIONAL: The patient is awake and alert. VITAL SIGNS: Pulse 75, breathing 16, and blood pressure 160/84. GENERAL APPEARANCE AND MENTAL STATUS: Fair. HEAD/NECK: Normocephalic. Atraumatic. EYES: EOMI. No deformity. EARS: Clear. No ulcers. NOSE: Intact. No lesions. MOUTH: Clear. No discharge. THROAT: Clear. No exudate. LUNGS: Clear. No crackles. CARDIAC: S1, S2. No rub. ABDOMEN: Benign. Bowel sounds positive. GENITALIA/RECTUM: Pantoja absent. BACK/EXTREMITIES: Edema 0+. NEUROLOGICAL: Alert and motor intact. SKIN: LYMPHATICS: LABORATORY DATA: Reviewed. ASSESSMENT AND PLAN: Stage 6 chronic kidney disease, continue hemodialysis. Hypertension, stable. Anemia, stable. Medication based on GFR appropriate. Job ID: [id number]
[2018-11-12] MEDS: Polyethylene Glycol 3350 17 GM Packet PO SCH (12:07)
[2018-11-12] MEDS: Carvedilol 25 MG TAB PO SCH ×2 (12:10→22:22)
[2018-11-12] MEDS: Amlodipine 5 MG TAB PO SCH (12:11)
[2018-11-12] MEDS: Megestrol Acetate 40 MG TAB PO SCH (12:14)
[2018-11-12] MEDS: Famotidine 20 MG TAB PO SCH (12:14)
[2018-11-12] MEDS: Varenicline Tartrate 0.5 MG TAB PO SCH (12:15)
[2018-11-12] MEDS: Folic Acid/Vit B Comp W-C PO SCH (12:16)
[2018-11-12] MEDS: traMADol HCl 50 MG TAB PO PRN (12:38)
[2018-11-12] MEDS: Labetalol HCl 100 MG/20 ML VIAL SLOW IVP PRN (12:41)
[2018-11-12 13:32] VITALS: BMI 20.1
[2018-11-12] MEDS: hydrALAZINE 20 MG/ML VIAL SLOW IVP PRN (14:15)
[2018-11-12] MEDS: cloNIDine 0.2 MG TAB PO PRN (14:23)
[2018-11-12] MEDS ORDERED: Terazosin HCl 1 MG CAP PO SCH ×3 (17:15→21:00)
[2018-11-12] MEDS: Atorvastatin Calcium 40 MG TAB PO SCH (22:21)
[2018-11-13] MEDS: hydrALAZINE 20 MG/ML VIAL SLOW IVP PRN ×3 (00:59→04:49)
[2018-11-13] MEDS: cloNIDine 0.2 MG TAB PO PRN (01:36)
[2018-11-13] MEDS: Labetalol HCl 100 MG/20 ML VIAL SLOW IVP PRN (02:46)
[2018-11-13 05:31] LABS: Anion Gap 13 mmol/L (10-20); Calc. Creatinine Clearance 9 mL/min (70-130); Carbon Dioxide 28 mmol/L (22-29); Chloride 100 mmol/L (98-107); Estimated GFR-MDRD 10; Glucose 97 mg/dL (70-105); Potassium 4.1 mmol/L (3.5-5.1); Sodium 137 mmol/L (136-145)
[2018-11-13 06:02] LABS: BUN (Urea Nitrogen) 22 mg/dL (9.8-20.1)
--- NOTE | 2018-11-13 07:16 | PDOC.FM ---
- Subjective Subjective: Pt reports slight headache today. Denies any weakness or presyncope episodes. - Objective MAR Reviewed: Yes Vital Signs & Weight: Vital Signs (12 hours) Temp Pulse Resp BP BP Pulse Ox 11/13/18 04:49 68 160/79 H 11/13/18 04:19 68 160/79 H 11/13/18 04:00 100 11/13/18 03:30 99.7 F H 75 16 164/76 H 100 11/13/18 03:24 75 164/76 H 11/13/18 02:46 72 163/77 H 11/13/18 01:36 171/77 H 11/13/18 00:59 73 163/75 H 11/13/18 00:00 99.6 F 73 18 163/75 H 98 11/12/18 20:00 98.3 F 70 18 163/74 H 99 Weight Admit Weight 50.802 kg Weight 49.714 kg Most Recent Monitor Data Heart Rate from ECG 71 NIBP 170/79 NIBP BP-Mean 109 Respiration from ECG 16 SpO2 97 I&O: 11/12/18 11/13/18 11/14/18 06:59 06:59 06:59 Intake Total 750 240 Output Total 0 Balance 750 240 Result Diagrams: 11/08/18 05:17 11/13/18 04:45 Phys Exam - Physical Examination Constitutional: NAD (Checked bedside BP and it was 147/73, palpated systolic was consistent with above) HEENT: moist MMs Neck: no JVD Respiratory: no wheezing, clear to auscultation bilateral Cardiovascular: RRR, no significant murmur Gastrointestinal: soft, non-tender, no distention, positive bowel sounds Musculoskeletal: no edema, pulses present Neurological: normal sensation, moves all 4 limbs (5/5 strength in upper extremity, 4/5 in left lower, 3-4/5 in right lower) CNII-XII grossly intact Psychiatric: normal affect Deviation from normal: Oriented to person, place, and date, incorrect year Skin: cap refill <2 seconds Dx/Plan (1) Hemorrhagic cerebrovascular accident (CVA) Code(s): I61.9 - NONTRAUMATIC INTRACEREBRAL HEMORRHAGE, UNSPECIFIED Status: Acute (2) Hyponatremia Code(s): E87.1 - HYPO-OSMOLALITY AND HYPONATREMIA Status: Acute (3) Normocytic anemia Code(s): D64.9 - ANEMIA, UNSPECIFIED Status: Chronic (4) CHF (congestive heart failure) Code(s): I50.9 - HEART FAILURE, UNSPECIFIED Status: Chronic (5) ESRD (end stage renal disease) on dialysis Code(s): N18.6 - END STAGE RENAL DISEASE; Z99.2 - DEPENDENCE ON RENAL DIALYSIS Status: Chronic (6) GERD (gastroesophageal reflux disease) Code(s): K21.9 - GASTRO-ESOPHAGEAL REFLUX DISEASE WITHOUT ESOPHAGITIS Status: Chronic (7) HTN (hypertension) Code(s): I10 - ESSENTIAL (PRIMARY) HYPERTENSION Status: Chronic - Plan Plan: This is a 57 yo female with a pmh of CAD, CHF, HTN, ESRD on HD, COPD Hemorrhagic CVA -Not a surgical candidate, pt pending rehab placement, [facility] referral sent, pending response -Will require tight BP control, <150/90 for two weeks (11/21/18) -Continue keppra for seizure prophylaxis -Neurology and Neurosurgery following case, will appreciate recommendations Hyponatremia, resolved Normocytic anemia, stable HTN -Goals as above -Continue home meds, PRN labetolol, clonidine, hydralazine -Will max BP medications today to ensure goal BP is met, added on terazosin for control CHF -No documented EF on file -Continue home meds, monitor for signs of overload ESRD on HD MWF -Nephrology consulted COPD -No home meds, PRN nebs GERD -continue home meds
[2018-11-13] MEDS ORDERED: Lisinopril 2.5 MG TAB PO SCH (09:00)
[2018-11-13] MEDS: Carvedilol 25 MG TAB PO SCH (09:22)
[2018-11-13] MEDS: Megestrol Acetate 40 MG TAB PO SCH (09:23)
[2018-11-13] MEDS: Famotidine 20 MG TAB PO SCH (09:23)
[2018-11-13] MEDS: Amlodipine 5 MG TAB PO SCH (09:23)
[2018-11-13] MEDS: Polyethylene Glycol 3350 17 GM Packet PO SCH (09:24)
[2018-11-13] MEDS: Varenicline Tartrate 0.5 MG TAB PO SCH (09:24)
[2018-11-13] MEDS: Folic Acid/Vit B Comp W-C PO SCH (09:24)
[2018-11-13] MEDS: Sevelamer Carbonate 800 MG TAB PO SCH ×2 (09:26→12:56)
[2018-11-13 11:40] VITALS: TEMP 98.9
[2018-11-13 12:28] VITALS: BP 157/72
--- NOTE | 2018-11-13 13:18 | PRG ---
DATE OF SERVICE: 11/13/2018 SUBJECTIVE: This is a 57-year-old female being seen for end-stage renal disease. The patient denied nausea, vomiting, or chest pain. OBJECTIVE: See above. Awake, alert, in no acute distress. VITAL SIGNS: Pulse 75, breathing 16, blood pressure was 152/72 GENERAL APPEARANCE AND MENTAL STATUS: Fair. HEAD/NECK: Normocephalic. Atraumatic. EYES: EOMI. No deformity. EARS: Clear. No ulcers. NOSE: Intact. No lesions. MOUTH: Clear. No discharge. THROAT: Clear. No exudate. LUNGS: Clear. No crackles. CARDIAC: S1, S2. No rub. ABDOMEN: Benign. Bowel sounds positive. GENITALIA/RECTUM: Pantoja absent. BACK/EXTREMITIES: Edema 0+. NEUROLOGICAL: Alert and motor intact. SKIN: LYMPHATICS: LABORATORY DATA: Reviewed. ASSESSMENT AND PLAN: 1. Stage 6 chronic kidney disease, continue hemodialysis. 2. Hypertension, stable. 3. Anemia, stable. 4. Medication based on GFR appropriate. Job ID: [id number]
[2018-11-13] MEDS ORDERED: Terazosin HCl 5 MG CAP PO SCH (21:00)
== END 2018-11-13 15:51 | DRG 64 ==
LOC: ERS 11:22 → CCU 12:42 → 2SE 11-11 20:12
PROVIDERS: ADMIT Neurological Surgery; ATTEND Neurological Surgery
DX: I62.9 Nontraumatic intracranial hemorrhage, unspecified (principal); N18.6 End stage renal disease; G93.6 Cerebral edema; I13.2 Hypertensive heart and chronic kidney disease with heart failure and with stage 5 chronic kidney disease, or end stage renal disease; G93.40 Encephalopathy, unspecified; E87.1 Hypo-osmolality and hyponatremia; I50.9 Heart failure, unspecified; J44.9 Chronic obstructive pulmonary disease, unspecified; K21.9 Gastro-esophageal reflux disease without esophagitis; G47.00 Insomnia, unspecified; R47.81 Slurred speech; G89.29 Other chronic pain; D63.1 Anemia in chronic kidney disease; Z99.2 Dependence on renal dialysis; Z90.49 Acquired absence of other specified parts of digestive tract; Z87.891 Personal history of nicotine dependence; E16.2 Hypoglycemia, unspecified
CPT/HCPCS: 36415; 36416; 70450; 70496; 80048; 81015; 84100; 85025; 90935; 96365; 96366; 96372; 99213; C9113; G0257; G0463; J0360; J1885; J1953; J7050; J7799; Q9966; S0179

== ENCOUNTER 2019-02-07 09:46 | Outpatient (CLI) | payer MEDICARE, MEDICAID ==
--- NOTE | 2019-02-07 10:25 | CT ---
CT Brain WO Con: 02/07/2019 12:00 AM CLINICAL HISTORY: Hemorrhagic stroke. COMPARISON: 11/08/2018 FINDINGS: Hemorrhage: Interval resolution of prior parenchymal hemorrhage with associated encephalomalacia of t he periventricular aspect of the left frontal lobe. No new hemorrhage. Ventricular system: Ex vacuo dilatation, with an overall mild enlargement of the ventricular system. Cerebral parenchyma: Multifocal white matter hypoattenuation indicative of microvascular ischemic dis ease. Midline shift: None. Mass: No mass effect. Calvarium: Normal. Visualized Paranasal sinuses: Clear. IMPRESSION: No acute intracranial abnormalities. Residual encephalomalacia from prior parenchymal hemorrhage, superimposed upon microvascular ischemic disease.
== END 2019-02-07 09:47 | disposition home or self-care (01) ==
LOC: SCSCT 09:46
PROVIDERS: ATTEND Family Medicine
DX: I62.9 Nontraumatic intracranial hemorrhage, unspecified (principal)
CPT/HCPCS: 70450

== ENCOUNTER 2019-02-26 13:43 | Outpatient (CLI) | payer MEDICARE, MEDICAID | END 2019-02-26 13:44 | disposition home or self-care (01) | LOC: SCSCT 13:43 | PROVIDERS: ATTEND Neurological Surgery | DX: I61.9 Nontraumatic intracerebral hemorrhage, unspecified (principal) | CPT/HCPCS: 70450 ==